=== PATIENT | female | born 1970 | race Caucasian/White ===

== ENCOUNTER → 2017-07-16 | Outpatient (CLI) | payer OTHER ==
--- NOTE | 2017-07-16 09:53 | US ---
EXAMINATION TYPE: US venous doppler duplex LE DATE OF EXAM: 07/16/2017 9:35 AM COMPARISON: NONE CLINICAL HISTORY: M79.662 M79.661 Pain in lower limbs. SIDE PERFORMED: Bilateral TECHNIQUE: The lower extremity deep venous system is examined utilizing real time linear array sonog jaylyn with graded compression, doppler sonography and color-flow sonography. VESSELS IMAGED: External Iliac Vein (EIV) Common Femoral Vein Deep Femoral Vein Greater Saphenous Vein * Femoral Vein Popliteal Vein Proximal Calf Veins (* superficial vessels) Right Leg: Negative for DVT Left Leg: Negative for DVT IMPRESSION: Grayscale, color doppler, spectral doppler imaging performed of the deep veins of the lo wer extremities. There is normal flow, compressibility, vascular waveforms. No evident deep venous arthrosis at or above the knees.
--- NOTE | 2017-07-16 10:13 | MM ---
Reason for exam: screening (asymptomatic). Baseline mammogram. Physical Findings: Nurse did not find any significant physical abnormalities on exam. MG 3D Screening Mammo W/Cad Bilateral CC and MLO view(s) were taken. XCCL view(s) were taken of the right breast. There are scattered fibroglandular densities. Benign calcifications bilaterally. There is no discrete abnormality. These results were verbally communicated with the patient and result sheet given to the patient on 07/16/17. ASSESSMENT: Benign, BI-RAD 2 RECOMMENDATION: Routine screening mammogram of both breasts in 1 year.
== END | disposition home or self-care (01) ==
LOC: RADMAMWWP 08:22
PROVIDERS: ATTEND Family Medicine
DX: Z12.31 Encounter for screening mammogram for malignant neoplasm of breast (principal); M79.661 Pain in right lower leg; M79.662 Pain in left lower leg; R22.43 Localized swelling, mass and lump, lower limb, bilateral
CPT/HCPCS: 77063; 77067; 93970

== ENCOUNTER → 2018-09-28 | Outpatient (CLI) | payer OTHER ==
--- NOTE | 2018-09-29 13:19 | MM ---
Reason for exam: screening (asymptomatic). Last mammogram was performed 1 year and 2 months ago. Physical Findings: A clinical breast exam by your physician is recommended on an annual basis and results should be correlated with mammographic findings. MG Screening Mammo w CAD Bilateral CC and MLO view(s) were taken. XCCL view(s) were taken of the left breast. Prior study comparison: July 16, 2017, bilateral MG 3d screening mammo w/cad. There are scattered fibroglandular densities. There are benign appearing round dystrophic calcifications bilaterally. There is no discrete abnormality. ASSESSMENT: Benign, BI-RAD 2 RECOMMENDATION: Routine screening mammogram of both breasts in 1 year.
== END | disposition home or self-care (01) ==
LOC: RADMAMWWP 10:42
PROVIDERS: ATTEND Family Medicine
DX: Z12.31 Encounter for screening mammogram for malignant neoplasm of breast (principal)
CPT/HCPCS: 77067

== ENCOUNTER → 2020-01-16 | Outpatient (CLI) | payer OTHER ==
--- NOTE | 2020-01-16 16:31 | NM ---
EXAMINATION TYPE: NM hepatobiliary wo EF DATE OF EXAM: 01/16/2020 COMPARISON: CT abdomen pelvis 11/28/2015 HISTORY: Status post cholecystectomy. Intermittent right upper quadrant pain. TECHNIQUE: After the intravenous administration of 5.2 mCi Tc 99m Mebrofenin hepatobiliary scintigrap hy is performed. Immediate images post injection. FINDINGS: No gallbladder activity is seen. Small bowel activity is seen within 15 minutes. There is normal hepa tic activity and clearance. No evidence of abnormal extravasation. IMPRESSION: No evidence of activity within the gallbladder fossa or abnormal extravasation. Examinati on is as expected status post cholecystectomy.
== END | disposition home or self-care (01) ==
LOC: RADNMMAIN 07:01
PROVIDERS: ATTEND Family Medicine
DX: R10.11 Right upper quadrant pain (principal); Z90.49 Acquired absence of other specified parts of digestive tract
CPT/HCPCS: 78226; A9537

== ENCOUNTER → 2020-02-26 | Outpatient (CLI) | payer OTHER ==
--- NOTE | 2020-02-28 09:52 | MM ---
Reason for exam: screening (asymptomatic). Last mammogram was performed 1 year and 5 months ago. History: Patient history of other cancer. Physical Findings: A clinical breast exam by your physician is recommended on an annual basis and results should be correlated with mammographic findings. MG Screening Mammo w CAD Bilateral CC and MLO view(s) were taken. Prior study comparison: September 28, 2018, bilateral MG screening mammo w CAD. July 16, 2017, bilateral MG 3d screening mammo w/cad. There are scattered fibroglandular densities. Benign oil cyst calcifications. No significant changes when compared with prior studies. ASSESSMENT: Negative, BI-RAD 1 RECOMMENDATION: Routine screening mammogram of both breasts in 1 year.
== END | disposition home or self-care (01) ==
LOC: RADMAMWWP 14:39
PROVIDERS: ATTEND Family Medicine
DX: Z12.31 Encounter for screening mammogram for malignant neoplasm of breast (principal)
CPT/HCPCS: 77067

== ENCOUNTER → 2020-09-23 | Outpatient (CLI) | payer OTHER ==
[2020-09-23 13:14] VITALS: BP 131/83; PULSE 92; RESP 18; TEMP 97.6; BMI 44.5
[2020-09-23 14:19] LABS: MCH 27.1 pg (25.0-35.0); MCHC 33.3 g/dL (31.0-37.0); MCV 81.4 fL (80.0-100.0); Platelet Count 341 k/uL (150-450); RBC 4.79 m/uL (3.80-5.40); RDW 15.2 % (11.5-15.5); WBC 9.7 k/uL (3.8-10.6)
--- NOTE | 2020-09-23 16:17 | P.HPBAR ---
Bariatric H&P - History & Physicial H&P Date: 09/23/20 History & Physicial: Visit/CC: initial visit Patient initial contact: Initial weight: Initial weight in pounds: Height: 5 ft 5.75 in Initial BMI: Last weight: Current weight: 124.284 kg Current weight in pounds: 274.00 Current BMI: 44.5 [place] body weight (based on NIH guidelines): 58.4 kg Excess body weight loss: The patient is a 49 year-old F who presents for Bariatric Assessment.patient presents today for bariatric consultation. She is morbidly obese. Her BMI is 44. She's had lifetime problems obesity. Patient has an excellent understanding of the sleeve gastrectomy. Went over the risks and benefits procedure including gastric perforation scarring or bleeding. Past Medical History Past Medical History: Chest Pain / Angina, GERD/Reflux Additional Past Medical History / Comment(s): diverticulosis, laparoscopic punctures still healing from 09-12-15,miscarriage History of Any Multi-Drug Resistant Organisms: None Reported Past Surgical History: Cholecystectomy Additional Past Surgical History / Comment(s): D & C x2, 10-25-15 BOWEL SX-LOW ANTERIOR RESECTION. Past Anesthesia/Blood Transfusion Reactions: Postoperative Nausea & Vomiting (PONV) Past Psychological History: No Psychological Hx Reported Smoking Status: Current every day smoker Past Alcohol Use History: None Reported Additional Past Alcohol Use History / Comment(s): started smoking 1990. PPD: 1/2 Past Drug Use History: None Reported - Past Family History Sister(s) Additional Family Medical History / Comment(s): bipolar Mother Additional Family Medical History / Comment(s): with blood clot to heart due to control Father Family Medical History: Cancer Additional Family Medical History / Comment(s): open heart surg x2 Surgical - Exam Vital Signs Temp Pulse Resp BP 97.6 F 92 18 131/83 09/23/20 13:06 09/23/20 13:06 09/23/20 13:06 09/23/20 13:06 - General well developed, well nourished, no distress - Eyes PERRL - ENT normal pinna - Neck no masses - Respiratory normal expansion - Cardiovascular Rhythm: regular - Abdomen Abdomen: soft, non tender Results - Labs 09/23/20 13:49 Bariatric Assessment & Plan Plan: morbid obesity. Patient is scheduled for EGD. She'll follow-upafter EGD is performed. Bariatric Checklist Checklist: Plan: Checklist: EGD: 1. Hiatal hernia: 2. H. Pylori: HgbA1c: Vitamin D: Smoking: Current every day smoker Primary care physician referral: Dr. Nieves (RACHEL Arreola) Psychiatry clearance: Cardiology clearance: Sleep study: Diet journal: VTE risk score: VTE risk level: Rehab needs at discharge:
[2020-09-23 20:08] LABS: Folate, Serum 3.6 ng/mL
[2020-09-23 20:14] LABS: African American GFR (CKD) 119.6 (60.0-200.0); Albumin/Globulin Ratio 1.74 (1.60-3.17); Anion Gap 6.9 mmol/L (4.00-12.00); BUN/Creat Ratio 18.57 Ratio (12.00-20.00); Calcium 9.3 mg/dL (8.7-10.3); Carbon Dioxide 28.1 mmol/L (21.6-31.8); Globulin 2.3 g/dL (1.6-3.3); Non-African American GFR(CKD) 103.2 (60.0-200.0); Potassium 4.4 mmol/L (3.5-5.5); Total Bilirubin 0.1 mg/dL (0.3-1.2); Total Protein 6.3 g/dL (6.2-8.2)
[2020-09-23 21:28] LABS: Hemoglobin A1C 6.4 % (4.0-6.0)
== END ==
LOC: BARWHC3 13:00
PROVIDERS: ATTEND Surgery
DX: E66.01 Morbid (severe) obesity due to excess calories (principal); K21.9 Gastro-esophageal reflux disease without esophagitis; F17.200 Nicotine dependence, unspecified, uncomplicated; Z68.41 Body mass index [BMI] 40.0-44.9, adult; Z79.899 Other long term (current) drug therapy
CPT/HCPCS: 84425; 80053; 82607; 82746; 85027; 82306; 83036; 93005; G0463; 99211

== ENCOUNTER 2020-11-07 08:00 | Day surgery (SDC) | payer OTHER ==
[2020-11-05 10:51] VITALS: BMI 42.7
[2020-11-07 09:02] VITALS: TEMP 97
[2020-11-07] MEDS ORDERED: LACTATED RINGERS 1,000 ML IV ONE (09:02)
[2020-11-07] MEDS ORDERED: LIDOCAINE 1% INJ 10MG/ML (20 ML MDV) ONE (09:31)
[2020-11-07] MEDS ORDERED: PROPOFOL 10 MG/ML 20 ML VIAL IV ONE (09:31)
--- NOTE | 2020-11-07 09:35 | P.GSHP ---
History of Present Illness H&P Date: 11/07/20 Chief Complaint: GERD, morbid obesity This a 42-year-old female presents today for EGD. She is undergoing workup for sleeve gastrectomy. She is morbidly obese. Her BMI is 44 Past Medical History Past Medical History: GERD/Reflux Additional Past Medical History / Comment(s): diverticulosis,miscarriage History of Any Multi-Drug Resistant Organisms: None Reported Past Surgical History: Bowel Resection, Cholecystectomy Additional Past Surgical History / Comment(s): D & C x2, 10-25-15 BOWEL SX-LOW ANTERIOR RESECTION. Past Anesthesia/Blood Transfusion Reactions: Postoperative Nausea & Vomiting (PONV) Past Psychological History: No Psychological Hx Reported Smoking Status: Current every day smoker Past Alcohol Use History: None Reported Additional Past Alcohol Use History / Comment(s): started smoking 1990. PPD: 06/29 Past Drug Use History: None Reported - Past Family History Sister(s) Additional Family Medical History / Comment(s): bipolar Mother Additional Family Medical History / Comment(s): with blood clot to heart due to control Father Family Medical History: Cancer Additional Family Medical History / Comment(s): open heart surg x2 Medications and Allergies Home Medications Medication Instructions Recorded Confirmed Type Acetaminophen Tab [Tylenol] 650 mg PO Q4H PRN 09/23/20 11/05/20 History Omeprazole [PriLOSEC] 20 mg PO AC-BRKFST 09/23/20 11/05/20 History Allergies Allergy/AdvReac Type Severity Reaction Status Date / Time No Known Allergies Allergy Verified 11/05/20 10:46 Surgical - Exam Vital Signs Temp Pulse Resp BP Pulse Ox 97 F L 90 20 156/100 94 L 11/07/20 09:00 11/07/20 09:00 11/07/20 09:00 11/07/20 09:00 11/07/20 09:00 - General well developed, well nourished, no distress - Eyes PERRL - ENT normal pinna - Neck no masses - Respiratory normal expansion - Cardiovascular Rhythm: regular - Abdomen Abdomen: soft, non tender Assessment and Plan Assessment: GERD, obesity. We'll perform EGD.
--- NOTE | 2020-11-07 09:44 | P.OP ---
Date of Procedure: 11/07/20 Preoperative Diagnosis: GERD Postoperative Diagnosis: Antral gastritis Esophagitis Procedure(s) Performed: EGD Anesthesia: MAC Surgeon: Geremias Montenegro Pathology: other (Antrum, esophagus) Condition: stable Disposition: PACU Description of Procedure: The patient's placed on the endoscopy table in the lateral position. She received IV sedation. The gastro-/oropharynx passed in the esophagus and the stomach. Scope was placed through the pylorus. The first and second portion of the duodenum appeared normal. Scope was brought back the antrum this was mildly inflamed. A biopsies performed. Scope was then retroflexed and the remainder of the stomach appeared normal. The GE junction was at 40 cm. The distal esophagus was inflamed. A biopsies performed. The proximal esophagus appeared normal. The scope was withdrawn for patient.
[2020-11-07 10:01] VITALS: BP 139/91; PULSE 94; RESP 18
== END 2020-11-07 10:16 | disposition home or self-care (01) ==
LOC: ORWHC2ENDO 08:00
PROVIDERS: ATTEND Surgery
DX: K29.50 Unspecified chronic gastritis without bleeding (principal); K21.00 Gastro-esophageal reflux disease with esophagitis, without bleeding; E66.01 Morbid (severe) obesity due to excess calories; F31.9 Bipolar disorder, unspecified; F17.210 Nicotine dependence, cigarettes, uncomplicated; Z68.41 Body mass index [BMI] 40.0-44.9, adult; Z79.899 Other long term (current) drug therapy; Z80.9 Family history of malignant neoplasm, unspecified; Z82.49 Family history of ischemic heart disease and other diseases of the circulatory system
CPT/HCPCS: 81025; 88305; 88342; 43239; J2001; J2704

== ENCOUNTER → 2020-11-18 | Outpatient (CLI) | payer OTHER ==
[2020-11-18 14:29] VITALS: BP 135/91; PULSE 98; RESP 16; TEMP 98.5; BMI 46.8
--- NOTE | 2020-11-18 15:42 | P.HPBAR ---
Bariatric H&P - History & Physicial H&P Date: 11/18/20 History & Physicial: Visit/CC: EGD F/U Patient initial contact: Initial weight: 124.284 kg Initial weight in pounds: 274.00 Height: 5 ft 5.75 in Initial BMI: 44.5 Last weight: Current weight: 130.635 kg Current weight in pounds: 288.00 Current BMI: 46.8 [place] body weight (based on NIH guidelines): 58.4 kg Excess body weight loss: The patient is a 50 year-old F who presents for Bariatric Assessment. Patient presents today for presurgical consultation. She. Has a couple more months left of her physician directed weight loss. She has an excellent understanding of the sleeve gastrectomy. Her BMI is 46 Past Medical History Past Medical History: GERD/Reflux Additional Past Medical History / Comment(s): diverticulosis,miscarriage History of Any Multi-Drug Resistant Organisms: None Reported Past Surgical History: Bowel Resection, Cholecystectomy Additional Past Surgical History / Comment(s): D & C x2, 10-25-15 BOWEL SX-LOW ANTERIOR RESECTION. Past Anesthesia/Blood Transfusion Reactions: Postoperative Nausea & Vomiting (PONV) Past Psychological History: No Psychological Hx Reported Smoking Status: Current every day smoker Past Alcohol Use History: None Reported Additional Past Alcohol Use History / Comment(s): started smoking 1990. PPD: 06/29 Past Drug Use History: None Reported - Past Family History Sister(s) Additional Family Medical History / Comment(s): bipolar Mother Additional Family Medical History / Comment(s): with blood clot to heart due to control Father Family Medical History: Cancer Additional Family Medical History / Comment(s): open heart surg x2 Surgical - Exam Vital Signs Temp Pulse Resp BP 98.5 F 98 16 135/91 11/18/20 14:25 11/18/20 14:25 11/18/20 14:25 11/18/20 14:25 - General well developed, well nourished, no distress - Eyes PERRL - ENT normal pinna - Neck no masses - Respiratory normal expansion - Cardiovascular Rhythm: regular - Abdomen Abdomen: soft, non tender Hernia: incisional Bariatric Assessment & Plan Plan: Morbid obesity. Patient will be scheduled for sleeve gastrectomy once her insurance authorization requirements. Bariatric Checklist Checklist: Plan: Checklist: EGD: 1. Hiatal hernia: 2. H. Pylori: HgbA1c: Vitamin D: Smoking: Current every day smoker Primary care physician referral: Dr. Nieves (RACHEL Arreola) Psychiatry clearance: Cardiology clearance: Sleep study: Diet journal: VTE risk score: VTE risk level: Rehab needs at discharge:
== END ==
LOC: BARWHC3 14:11
PROVIDERS: ATTEND Surgery
DX: E66.01 Morbid (severe) obesity due to excess calories (principal); K21.9 Gastro-esophageal reflux disease without esophagitis; Z68.41 Body mass index [BMI] 40.0-44.9, adult; F17.210 Nicotine dependence, cigarettes, uncomplicated
CPT/HCPCS: 99211

== ENCOUNTER 2021-07-22 09:34 | Emergency (ER) | payer OTHER ==
[2021-07-22 10:56] LABS: Appearance,Urine Cloudy (Clear); Bilirubin,Urine Negative (Negative); Blood,Urine Trace (Negative); Color,Urine Yellow; Glucose,Urine (UA) Negative (Negative); Ketones,Urine Negative (Negative); Leukocyte Esterase,Urine Negative (Negative); Mucus,Urine Few /hpf; Nitrite,Urine Negative (Negative); PH, Urine 5.5 (5.0-8.0); Protein,Urine Trace (Negative); RBC,Urine 1 /hpf (0-5); Specific Gravity,Urine 1.028 (1.001-1.035); Squamous Epithelial Cell,Urine 5 /hpf (0-4); Urobilinogen,Urine <2.0 mg/dL (<2.0); WBC,Urine 1 /hpf (0-5)
--- NOTE | 2021-07-22 11:34 | ED ---
General Adult HPI - General Chief complaint: Abdominal Pain Stated complaint: rectal pain, lt arm numbness Time Seen by Provider: 07/22/21 11:20 Source: patient Mode of arrival: ambulatory Limitations: no limitations - History of Present Illness Initial comments: This 50-year-old female with past medical history of an umbilical hernia and hemorrhoids presents emergency Department with external hemorrhoid pain 1 day. Patient states she has had this external hemorrhoid for at least 3-4 days now, however, over the last couple days she has noticed it becoming more painful. Patient states she had rectal bleeding from a hemorrhoid yesterday, with bright red blood in her toilet bowl and on her toilet paper. Patient states she has had many hemorrhoids in her past that usually go away on their own. Patient states her umbilical hernia has also been bothering her for the last 2 days, causing her some abdominal pain. Patient states she has increased pain that is colicky in nature around her umbilical hernia. Patient denies any chest pain, shortness of breath, weakness, dizziness, abdominal pain, change in bowel or bladder, constipation, nausea, vomiting, headache, change in vision. - Related Data Home Medications Medication Instructions Recorded Confirmed Omeprazole [PriLOSEC] 20 mg PO AC-BRKFST 09/23/20 07/22/21 Previous Rx's Medication Instructions Recorded Hydrocortisone [Anusol-Hc] 1 applic RECTAL TID #30 gm 07/22/21 Allergies Allergy/AdvReac Type Severity Reaction Status Date / Time No Known Allergies Allergy Verified 07/22/21 12:31 Review of Systems ROS Statement: Those systems with pertinent positive or pertinent negative responses have been documented in the HPI. ROS Other: All systems not noted in ROS Statement are negative. Past Medical History Past Medical History: GERD/Reflux Additional Past Medical History / Comment(s): diverticulosis,miscarriage History of Any Multi-Drug Resistant Organisms: None Reported Past Surgical History: Bowel Resection, Cholecystectomy Additional Past Surgical History / Comment(s): D & C x2, 10-25-15 BOWEL SX-LOW ANTERIOR RESECTION. Past Anesthesia/Blood Transfusion Reactions: Postoperative Nausea & Vomiting (PONV) Past Psychological History: No Psychological Hx Reported Smoking Status: Current every day smoker Past Alcohol Use History: None Reported Past Drug Use History: Marijuana - Past Family History Sister(s) Additional Family Medical History / Comment(s): bipolar Mother Additional Family Medical History / Comment(s): with blood clot to heart due to control Father Family Medical History: Cancer Additional Family Medical History / Comment(s): open heart surg x2 General Exam Limitations: no limitations General appearance: alert, in no apparent distress Head exam: Present: atraumatic, normocephalic, normal inspection Eye exam: Present: normal appearance, EOMI ENT exam: Present: normal exam, mucous membranes moist Neck exam: Present: normal inspection. Absent: tenderness, meningismus, lymphadenopathy Respiratory exam: Present: normal lung sounds bilaterally. Absent: respiratory distress, wheezes, rales, rhonchi, stridor Cardiovascular Exam: Present: regular rate, normal rhythm, normal heart sounds. Absent: systolic murmur, diastolic murmur, rubs, gallop, clicks GI/Abdominal exam: Present: soft, tenderness (Tender over umbilical hernia with the palpation), normal bowel sounds. Absent: distended, guarding, rebound, rigid Rectal exam: Present: hemorrhoids (External hemorrhoid present in the size of a nickel without any bleeding or bruising present. Hemorrhoid bulging and erythematous with slight firmness. Painful to palpation. ). Absent: heme (-) stool Extremities exam: Present: normal inspection, full ROM, normal capillary refill. Absent: tenderness, pedal edema, joint swelling, calf tenderness Back exam: Present: normal inspection. Absent: tenderness, CVA tenderness (R), CVA tenderness (L), paraspinal tenderness, vertebral tenderness Neurological exam: Present: alert, oriented X3, CN II-XII intact Psychiatric exam: Present: normal affect, normal mood Skin exam: Present: warm, dry, intact, normal color. Absent: rash Course Vital Signs 07/22/21 07/22/21 07/22/21 09:50 13:05 15:32 Temperature 97.6 F 97.8 F Pulse Rate 97 91 83 Respiratory 20 18 18 Rate Blood Pressure 119/81 116/79 119/66 O2 Sat by Pulse 97 98 96 Oximetry Medical Decision Making - Medical Decision Making This 50-year-old female presents to the emergency department with external hemorrhoid pain and umbilical hernia pain [address] abdomen and pelvis impression: Normal. Appendix. Hepatomegaly correlate for hepatic steatosis. There are to anterior abdominal wall. The hernias containing fat. Stable thickening of left adrenal gland. Correlate for hyperplasia or adenoma. Labs unremarkable. Rectal exam showed external hemorrhoid that was erythematous and painful to palpation. Urine without nitrites or white blood cells. Urine hCG is negative. She was prescribed Anusol cream and advised to take warm sitz bath and eat lots of fiber. Patient to follow up with surgeon in next 24-48 hours for evaluation of external hemorrhoid and umbilical hernia. Patient given strict return precautions. Patient to follow up with primary care provider next 24-48 hours. Patient verbally agreed to plan. Patient was sent home in stable condition. Discussed case with my attending, . - Lab Data Result diagrams: 07/22/21 12:25 07/22/21 12:25 Lab Results 07/22/21 07/22/21 07/22/21 Range/Units 10:00 10:00 12:25 WBC 8.1 (3.8-10.6) k/uL RBC 4.72 (3.80-5.40) m/uL Hgb 12.9 (11.4-16.0) gm/dL Hct 39.1 (34.0-46.0) % MCV 82.9 (80.0-100.0) fL MCH 27.2 (25.0-35.0) pg MCHC 32.9 (31.0-37.0) g/dL RDW 15.1 (11.5-15.5) % Plt Count 300 (150-450) k/uL MPV 7.5 Neutrophils % 62 % Lymphocytes % 27 % Monocytes % 5 % Eosinophils % 4 % Basophils % 0 % Neutrophils # 5.0 (1.3-7.7) k/uL Lymphocytes # 2.2 (1.0-4.8) k/uL Monocytes # 0.4 (0-1.0) k/uL Eosinophils # 0.4 (0-0.7) k/uL Basophils # 0.0 (0-0.2) k/uL PT (9.0-12.0) sec INR (<1.2) APTT (22.0-30.0) sec Sodium (137-145) mmol/L Potassium (3.5-5.1) mmol/L Chloride (98-107) mmol/L Carbon Dioxide (22-30) mmol/L Anion Gap mmol/L BUN (7-17) mg/dL Creatinine (0.52-1.04) mg/dL Est GFR (CKD-EPI)AfAm (>60 ml/min/1.73 sqM) Est GFR (CKD-EPI)NonAf (>60 ml/min/1.73 sqM) Glucose (74-99) mg/dL Plasma Lactic Acid Cornelio (0.7-2.0) mmol/L Calcium (8.4-10.2) mg/dL Total Bilirubin (0.2-1.3) mg/dL AST (14-36) U/L ALT (4-34) U/L Alkaline Phosphatase (38-126) U/L Total Protein (6.3-8.2) g/dL Albumin (3.5-5.0) g/dL Lipase (23-300) U/L Urine Color Yellow Urine Appearance Cloudy H (Clear) Urine pH 5.5 (5.0-8.0) Ur Specific [place] 1.028 (1.001-1.035) Urine Protein Trace H (Negative) Urine Glucose (UA) Negative (Negative) Urine Ketones Negative (Negative) Urine Blood Trace H (Negative) Urine Nitrite Negative (Negative) Urine Bilirubin Negative (Negative) Urine Urobilinogen <2.0 (<2.0) mg/dL Ur Leukocyte Esterase Negative (Negative) Urine RBC 1 (0-5) /hpf Urine WBC 1 (0-5) /hpf Ur Squamous Epith Cells 5 H (0-4) /hpf Urine Mucus Few H (None) /hpf Urine HCG, Qual Not Detected (Not Detectd) Stool Occult Blood (Negative) 07/22/21 07/22/21 07/22/21 Range/Units 12:25 12:25 12:25 WBC (3.8-10.6) k/uL RBC (3.80-5.40) m/uL Hgb (11.4-16.0) gm/dL Hct (34.0-46.0) % MCV (80.0-100.0) fL MCH (25.0-35.0) pg MCHC (31.0-37.0) g/dL RDW (11.5-15.5) % Plt Count (150-450) k/uL MPV Neutrophils % % Lymphocytes % % Monocytes % % Eosinophils % % Basophils % % Neutrophils # (1.3-7.7) k/uL Lymphocytes # (1.0-4.8) k/uL Monocytes # (0-1.0) k/uL Eosinophils # (0-0.7) k/uL Basophils # (0-0.2) k/uL PT 10.2 (9.0-12.0) sec INR 0.9 (<1.2) APTT 22.1 (22.0-30.0) sec Sodium 136 L (137-145) mmol/L Potassium 4.2 (3.5-5.1) mmol/L Chloride 106 (98-107) mmol/L Carbon Dioxide 25 (22-30) mmol/L Anion Gap 5 mmol/L BUN 12 (7-17) mg/dL Creatinine 0.68 (0.52-1.04) mg/dL Est GFR (CKD-EPI)AfAm >90 (>60 ml/min/1.73 sqM) Est GFR (CKD-EPI)NonAf >90 (>60 ml/min/1.73 sqM) Glucose 154 H (74-99) mg/dL Plasma Lactic Acid Cornelio 1.3 (0.7-2.0) mmol/L Calcium 9.0 (8.4-10.2) mg/dL Total Bilirubin 0.4 (0.2-1.3) mg/dL AST 26 (14-36) U/L ALT 29 (4-34) U/L Alkaline Phosphatase 73 (38-126) U/L Total Protein 6.9 (6.3-8.2) g/dL Albumin 3.7 (3.5-5.0) g/dL Lipase 27 (23-300) U/L Urine Color Urine Appearance (Clear) Urine pH (5.0-8.0) Ur Specific [place] (1.001-1.035) Urine Protein (Negative) Urine Glucose (UA) (Negative) Urine Ketones (Negative) Urine Blood (Negative) Urine Nitrite (Negative) Urine Bilirubin (Negative) Urine Urobilinogen (<2.0) mg/dL Ur Leukocyte Esterase (Negative) Urine RBC (0-5) /hpf Urine WBC (0-5) /hpf Ur Squamous Epith Cells (0-4) /hpf Urine Mucus (None) /hpf Urine HCG, Qual (Not Detectd) Stool Occult Blood (Negative) 07/22/21 Range/Units 14:27 WBC (3.8-10.6) k/uL RBC (3.80-5.40) m/uL Hgb (11.4-16.0) gm/dL Hct (34.0-46.0) % MCV (80.0-100.0) fL MCH (25.0-35.0) pg MCHC (31.0-37.0) g/dL RDW (11.5-15.5) % Plt Count (150-450) k/uL MPV Neutrophils % % Lymphocytes % % Monocytes % % Eosinophils % % Basophils % % Neutrophils # (1.3-7.7) k/uL Lymphocytes # (1.0-4.8) k/uL Monocytes # (0-1.0) k/uL Eosinophils # (0-0.7) k/uL Basophils # (0-0.2) k/uL PT (9.0-12.0) sec INR (<1.2) APTT (22.0-30.0) sec Sodium (137-145) mmol/L Potassium (3.5-5.1) mmol/L Chloride (98-107) mmol/L Carbon Dioxide (22-30) mmol/L Anion Gap mmol/L BUN (7-17) mg/dL Creatinine (0.52-1.04) mg/dL Est GFR (CKD-EPI)AfAm (>60 ml/min/1.73 sqM) Est GFR (CKD-EPI)NonAf (>60 ml/min/1.73 sqM) Glucose (74-99) mg/dL Plasma Lactic Acid [place] (0.7-2.0) mmol/L Calcium (8.4-10.2) mg/dL Total Bilirubin (0.2-1.3) mg/dL AST (14-36) U/L ALT (4-34) U/L Alkaline Phosphatase (38-126) U/L Total Protein (6.3-8.2) g/dL Albumin (3.5-5.0) g/dL Lipase (23-300) U/L Urine Color Urine Appearance (Clear) Urine pH (5.0-8.0) Ur Specific [place] (1.001-1.035) Urine Protein (Negative) Urine Glucose (UA) (Negative) Urine Ketones (Negative) Urine Blood (Negative) Urine Nitrite (Negative) Urine Bilirubin (Negative) Urine Urobilinogen (<2.0) mg/dL Ur Leukocyte Esterase (Negative) Urine RBC (0-5) /hpf Urine WBC (0-5) /hpf Ur Squamous Epith Cells (0-4) /hpf Urine Mucus (None) /hpf Urine HCG, Qual (Not Detectd) Stool Occult Blood Negative (Negative) Disposition Clinical Impression: External hemorrhoid Disposition: HOME SELF-CARE Condition: Stable Instructions (If sedation given, give patient instructions): Hemorrhoids (ED), Umbilical Hernia (ED), Thrombosed Hemorrhoid (ED) Additional Instructions: Please return to the emergency department with any concerning, new, worsening s ymptoms. Please follow-up with primary care provider next 24-48 hours. Please follow-up with surgeon in next 24-48 hours. Continue to eat lots of fiber. Take warm sitz baths. Use medication as directed for external hemorrhoid. Prescriptions: Hydrocortisone [Anusol-Hc] 1 applic RECTAL TID #30 gm Is patient prescribed a controlled substance at d/c from ED?: No Referrals: Joaquín Nieves Jr, DO [Primary Care Provider] - 1-2 days Geremias Montenegro MD [STAFF PHYSICIAN] - 1-2 days Time of Disposition: 15:16
[2021-07-22] MEDS ORDERED: MORPHINE SULFATE 4 MG/ML SYRINGE IV STA (11:53)
[2021-07-22] MEDS ORDERED: SODIUM CHLORIDE 0.9% 500 ML 500 ML IV STA (11:53)
[2021-07-22 12:36] LABS: Basophils % (A) 0 %; Eosinophils # (A) 0.4 k/uL (0-0.7); Eosinophils % (A) 4 %; HCT 39.1 % (34.0-46.0); HGB 12.9 gm/dL (11.4-16.0); Lymphocytes # (A) 2.2 k/uL (1.0-4.8); Lymphocytes % (A) 27 %; MCH 27.2 pg (25.0-35.0); MCHC 32.9 g/dL (31.0-37.0); MCV 82.9 fL (80.0-100.0); Mean Platelet Volume 7.5; Monocytes # (A) 0.4 k/uL (0-1.0); Monocytes % (A) 5 %; Neutrophils % (A) 62 %; Platelet Count 300 k/uL (150-450); RBC 4.72 m/uL (3.80-5.40); RDW 15.1 % (11.5-15.5); WBC 8.1 k/uL (3.8-10.6)
[2021-07-22 12:47] LABS: ALT 29 U/L (4-34); AST 26 U/L (14-36); African American GFR (CKD) >90 (>60 ml/min/1.73 sqM); Albumin 3.7 g/dL (3.5-5.0); Alkaline Phosphatase 73 U/L (38-126); Anion Gap 5 mmol/L; Blood Urea Nitrogen 12 mg/dL (7-17); Carbon Dioxide 25 mmol/L (22-30); Chloride 106 mmol/L (98-107); Glucose 154 mg/dL (74-99); Lipase 27 U/L (23-300); Non-African American GFR(CKD) >90 (>60 ml/min/1.73 sqM); Potassium 4.2 mmol/L (3.5-5.1); Sodium 136 mmol/L (137-145); Total Bilirubin 0.4 mg/dL (0.2-1.3); Total Protein 6.9 g/dL (6.3-8.2)
[2021-07-22 12:56] LABS: INR 0.9 (<1.2); Partial Thromboplastin Time 22.1 sec (22.0-30.0); Prothrombin Time 10.2 sec (9.0-12.0)
--- NOTE | 2021-07-22 13:49 | CT ---
EXAMINATION TYPE: CT abdomen pelvis w con DATE OF EXAM: 07/22/2021 COMPARISON: 11/28/2015 HISTORY: periumbilical and RLQ pain CT DLP: 2735.4 mGycm Automated exposure control for dose reduction was used. CONTRAST: CT scan of the abdomen pelvis is performed with IV Contrast, patient injected with 100 mL of Isovue 3 00. FINDINGS- LUNG BASES- No significant abnormality is appreciated. LIVER/GB-diffuse low-attenuation liver correlate for hepatic steatosis. Areas of focal fatty sparing. Gallbladder not visualized.. PANCREAS-atrophy of the pancreas. SPLEEN- No gross abnormality is seen. ADRENALS-there is left adrenal thickening.. KIDNEYS/BLADDER- no hydronephrosis or nephrolithiasis. Parapelvic left renal cysts noted. BOWEL-bowel gas pattern nonspecific with no obstruction. Suggestion of previous surgery in the bowel. Normal appendix. LYMPH NODES- No greater than 1cm abdominal or pelvic lymph nodes areappreciated. OSSEOUS STRUCTURES-degenerative changes spine with multilevel facet arthropathy. Bilateral spondyloly sis L5. There is severe facet arthropathy L3-4 and L4-5 minimal anterolisthesis L4 on L5. Minimal ant erolisthesis L5 on S1. OTHER- there are multiple fat-containing periumbilical and anterior abdominal wall hernia. IMPRESSION- 1. Normal-appearing appendix. 2. Hepatomegaly correlate for hepatic steatosis. 3. There are 2 anterior abdominal wall periumbilical hernias containing fat. 4. Stable thickening of the left adrenal gland. Correlate for hyperplasia or adenoma.
[2021-07-22 15:16] VITALS: RESP 18
[2021-07-22 15:35] VITALS: BP 119/66; PULSE 83; TEMP 97.8
== END 2021-07-22 15:39 | disposition home or self-care (01) ==
LOC: EC 09:34
DX: K64.4 Residual hemorrhoidal skin tags (principal); K21.9 Gastro-esophageal reflux disease without esophagitis; F17.200 Nicotine dependence, unspecified, uncomplicated; Z79.83 Long term (current) use of bisphosphonates
CPT/HCPCS: 36415; 80053; 83605; 83690; 85025; 85610; 85730; 82272; 81001; 81025; 74177; 99284; 96374; J2270; Q9967

== ENCOUNTER → 2021-09-19 | Outpatient (CLI) | payer OTHER ==
[2021-09-19 17:57] LABS: Basophils # (A) 0.07 X 10*3/uL (0.00-0.10); Basophils % (A) 0.7 %; Eosinophils % (A) 5.1 %; HCT 41.9 % (37.2-46.3); HGB 12.8 g/dL (12.0-15.0); Immature Grans, Automated 0.4 %; Lymphocytes % (A) 28.3 %; MCH 25.3 pg (27.0-32.0); MCHC 30.5 g/dL (32.0-37.0); Mean Platelet Volume 10.3 fL (9.5-12.2); Monocytes % (A) 6.1 %; NRBC Per 100 WBC 0 /100 WBCS (0.0-0.0); Neutrophils # (A) 5.88 X 10*3/uL (1.80-7.70); Neutrophils % (A) 59.4 %; Platelet Count 331 X 10*3/uL (140-440); RBC 5.05 X 10*6/uL (4.10-5.20); RDW 15.8 % (11.5-14.5); WBC 9.89 X 10*3/uL (4.50-10.00)
== END | disposition home or self-care (01) ==
LOC: LABPAT 13:24
PROVIDERS: ATTEND Surgery
DX: Z01.812 Encounter for preprocedural laboratory examination (principal); K43.2 Incisional hernia without obstruction or gangrene
CPT/HCPCS: 36415; 85025

== ENCOUNTER 2021-09-30 07:50 | Observation (INO) | payer OTHER ==
[2021-09-25 15:44] VITALS: BMI 41.9
[~2021-09-30 07:50] MED LIST: ACETAMINOPHEN TAB 500 MG TAB PO PRN; DEXAMETHASONE SOD PHOSPHATE 4 MG/ML 1 ML VIAL IV ONE; HEPARIN SODIUM,PORCINE/PF 5,000 UNIT/0.5 ML SYRINGE SQ PRN; MIDAZOLAM 2 MG/2 ML VIAL IV PRN; ONDANSETRON 4 MG/2 ML VIAL IVP ONE; SCOPOLAMINE 1 MG/72 HR PATCH TRANSDERM ONE
[2021-09-30] MEDS: LACTATED RINGERS 1,000 ML IV SCH (08:29)
[2021-09-30 08:32] LABS: Glucose,Whole Blood 145 mg/dL (75-99)
[2021-09-30] MEDS ORDERED: fentaNYL (PF) 50 MCG/ML 2 ML AMP IVP ONE (08:57)
--- NOTE | 2021-09-30 09:17 | P.GSHP ---
History of Present Illness H&P Date: 09/30/21 Chief Complaint: Incisional hernia This a 42-year-old female has developed an incisional hernia. Patient is morbidly obese. Her BMI is 43. She is appears history of colon surgery. She has developed a incisional hernia superior portion of her midline scar. Past Medical History Past Medical History: GERD/Reflux Additional Past Medical History / Comment(s): Diverticulosis. Incisional hernia History of Any Multi-Drug Resistant Organisms: None Reported Past Surgical History: Bowel Resection, Cholecystectomy Additional Past Surgical History / Comment(s): D&C x2, 10-25-15 Bowel SX-Low Anterior Resection Past Anesthesia/Blood Transfusion Reactions: Postoperative Nausea & Vomiting (PONV) Past Psychological History: No Psychological Hx Reported Smoking Status: Current every day smoker Past Alcohol Use History: None Reported Additional Past Alcohol Use History / Comment(s): Started smoking 1990, PPD: 06/29 Past Drug Use History: Marijuana Additional Drug Use History / Comment(s): daily use - Past Family History Sister(s) Additional Family Medical History / Comment(s): bipolar Mother Additional Family Medical History / Comment(s): with blood clot to heart due to control Father Family Medical History: Cancer, Coronary Artery Disease (CAD) Additional Family Medical History / Comment(s): Skin cancer; open heart surg x2 Medications and Allergies Home Medications Medication Instructions Recorded Confirmed Type Omeprazole [PriLOSEC] 20 mg PO AC-BRKFST 09/23/20 09/25/21 History Allergies Allergy/AdvReac Type Severity Reaction Status Date / Time No Known Allergies Allergy Verified 09/25/21 15:23 Surgical - Exam Vital Signs Temp Pulse Resp BP Pulse Ox 98 F 94 20 142/67 96 09/30/21 08:21 09/30/21 08:21 09/30/21 08:21 09/30/21 08:21 09/30/21 08:21 - General well developed, well nourished, no distress - Eyes PERRL - ENT normal pinna - Neck no masses - Respiratory normal expansion - Cardiovascular Rhythm: regular - Abdomen Abdomen: soft, non tender Hernia: incisional (10 cm incisional hernia located at the superior aspect of midline scar) Results - Labs Abnormal Lab Results - Last 24 Hours (Table) 09/30/21 Range/Units 08:26 POC Glucose (mg/dL) 145 H (75-99) mg/dL Assessment and Plan Assessment: Incisional hernia. We'll perform laparoscopic robotic-assisted repair.
[2021-09-30] MEDS ORDERED: LIDOCAINE 1% INJ 10MG/ML (20 ML MDV) ONE (09:28)
[2021-09-30] MEDS ORDERED: ROCURONIUM 10 MG/ML (5 ML VIAL) IV ONE (09:28)
[2021-09-30] MEDS ORDERED: SODIUM CHLORIDE 0.9% (PF) 10 ML VIAL ONE (09:28)
[2021-09-30] MEDS ORDERED: KETAMINE 10 MG/ML 20 ML VIAL ONE (09:28)
[2021-09-30] MEDS ORDERED: SUCCINYLCHOLINE CHLORIDE VIAL 200 MG/10 ML VIAL IV ONE (09:28)
[2021-09-30] MEDS ORDERED: fentaNYL (PF) 50 MCG/ML 2 ML AMP ONE (09:28)
[2021-09-30] MEDS ORDERED: HYDROmorphone (PF) 1 MG/ML ONE (09:28)
[2021-09-30] MEDS ORDERED: ROPIVACAINE 5 MG/ML 30 ML VIAL ONE (09:28)
[2021-09-30] MEDS ORDERED: PROPOFOL 10 MG/ML 20 ML VIAL IV ONE (09:28)
[2021-09-30] MEDS ORDERED: NEOSTIGMINE 1 MG/ML 10 ML VIAL ONE (09:28)
[2021-09-30] MEDS ORDERED: GLYCOPYRROLATE 0.2 MG/ML 2 ML VIAL ONE (09:28)
[2021-09-30] MEDS ORDERED: BUPIVACAIN-EPI 0.25%-1:200,000 30 ML VIAL SQ ONE ×2 (09:29→10:06)
--- NOTE | 2021-09-30 09:46 | P.ANPRN ---
Procedure Note - Anesthesia - Nerve Block Performed Bilateral Erector Spinae Single Time Out Performed: Yes ([id number]) Date of Procedure: 09/30/21 Procedure Start Time: 08:57 Procedure Stop Time: 09:03 Location of Patient: PreOp Indication: Acute Post-Operative Pain, Requested by Surgeon Specifically requested for management of pain by : Geremias Montenegro Sedation Type: Sedate with meaningful contact maintained Preparation: Sterile Prep Position: Supine Catheter: Indwelling Needle Types: Gilma (4in x2) Needle Gauge: 21 Ultrasound used to visualize needle placement: Yes Ultrasound used to observe medication spread: Yes Injectate: 0.5% Ropivacaine (see comment for volume) (20cc + 10cc nacl pf each side) Blood Aspirated: No Pain Paresthesia on Injection Noted: No Resistance on Injection: Normal Image Stored and Saved: Yes Events: Uneventful and Well Tolerated
[2021-09-30] MEDS ORDERED: LACTATED RINGERS 1,000 ML IV ONE ×2 (10:00→10:41)
[2021-09-30] MEDS ORDERED: NALOXONE 0.4 MG/ML 1 ML VIAL IV PRN (10:41)
[2021-09-30] MEDS ORDERED: HYDROmorphone 0.5 MG/0.5 ML SYRINGE IVP PRN (10:41)
[2021-09-30] MEDS ORDERED: ACETAMINOPHEN TAB 325 MG TAB PO PRN (10:41)
--- NOTE | 2021-09-30 10:41 | P.OP ---
Date of Procedure: 09/30/21 Preoperative Diagnosis: Incisional hernia Postoperative Diagnosis: Incarcerated incisional hernia Adhesions Procedure(s) Performed: Diagnostic laparoscopy Open repair of incisional hernia with Prolene mesh Partial omentectomy Anesthesia: ZEN Surgeon: Geremias Montenegro Estimated Blood Loss (ml): 10 Pathology: other (Incarcerated omentum/hernia sac) Condition: stable Disposition: PACU Description of Procedure: The patient's placed on the operative table in the supine position. Her abdomen was prepped and draped usual sterile fashion. Patient's morbid obesity. Her BMI is 43. The patient had a previous low midline scar. At this appeared portion of her scar there was an incisional hernia. Using a 5 mm optical trocar in the left upper quadrant. Cavity is entered. After adequate insufflation the laparoscope was placed back into the. Cavity. There were significant adhesions noted throughout the. Cavity. At this point decided to perform a open hernia repair. The trochars withdrawn. The skin was incised in midline over the hernia. The nasal which cautery the subcutaneous tissue divided. The hernia sac was from subcutaneous tissues. The fascia oblique was then . The hernia sac was opened. There is incarcerated omentum within the hernia sac. This was transected using left cautery to pathology. The fascial defect was then closed using #1 Stratafix suture. A piece of Prolene mesh was cut to size and placed over top the repair and secured with secure strap tacker. A CHUCK drains placed over top the repair brought through separate stab incision. Avelina's fascia close closed with 0 Vicryl. Skin was closed jakub. Sterile dressing was applied. Patient top she will was sent to recovery room stable condition.
[2021-09-30] MEDS: HYDROmorphone 0.5 MG/0.5 ML SYRINGE IVP PRN ×3 (11:20→11:48)
[2021-09-30] MEDS: KETOROLAC 15 MG/ML 1 ML VIAL IVP SCH ×2 (11:50→18:05)
[2021-09-30] MEDS: HYDROmorphone 1 MG/ML 1 ML SYRINGE IVP PRN ×2 (14:34→20:41)
[2021-09-30] MEDS: ONDANSETRON 4 MG/2 ML VIAL IVP PRN (18:17)
[2021-09-30] MEDS ORDERED: METOCLOPRAMIDE 5 MG/ML 2 ML VIAL IVP PRN (19:02)
[2021-09-30] MEDS: DOCUSATE 100 MG CAP PO SCH (20:00)
[2021-10-01] MEDS: HYDROmorphone 1 MG/ML 1 ML SYRINGE IVP PRN ×3 (01:49→22:28)
[2021-10-01] MEDS: KETOROLAC 15 MG/ML 1 ML VIAL IVP SCH ×4 (01:49→17:13)
[2021-10-01] MEDS: ENOXAPARIN 40 MG/0.4 ML SYRINGE SQ SCH (08:12)
[2021-10-01] MEDS: DOCUSATE 100 MG CAP PO SCH ×2 (08:12→22:28)
[2021-10-01] MEDS: LACTATED RINGERS 1,000 ML IV SCH (09:06)
[2021-10-01] MEDS: traMADol 50 MG TAB PO PRN (09:19)
--- NOTE | 2021-10-01 13:11 | P.HPIM ---
History of Present Illness H&P Date: 10/01/21 Chief Complaint: Hernia repair This is a 50-year-old female admitted with incarcerated incisional hernia, status post open repair with partial omentectomy . Tolerated procedure well. Reports nausea and vomiting last night, has a history of postop nausea & vomiting. This morning complains of mild nausea, no emesis, diet recently ordered. Pain controlled, passing flatus. Denies chest pain, palpitations or shortness of breath. Denies lightheadedness, dizziness or focal deficits. Past Medical History Past Medical History: GERD/Reflux Additional Past Medical History / Comment(s): Diverticulosis. Incisional hernia History of Any Multi-Drug Resistant Organisms: None Reported Past Surgical History: Bowel Resection, Cholecystectomy Additional Past Surgical History / Comment(s): D&C x2, 10-25-15 Bowel SX-Low Anterior Resection Past Anesthesia/Blood Transfusion Reactions: Postoperative Nausea & Vomiting (PONV) Past Psychological History: No Psychological Hx Reported Smoking Status: Current every day smoker Past Alcohol Use History: None Reported Additional Past Alcohol Use History / Comment(s): Started smoking 1990, PPD: 06/29 Past Drug Use History: Marijuana Additional Drug Use History / Comment(s): daily use - Past Family History Sister(s) Additional Family Medical History / Comment(s): bipolar Mother Additional Family Medical History / Comment(s): with blood clot to heart due to control Father Family Medical History: Cancer, Coronary Artery Disease (CAD) Additional Family Medical History / Comment(s): Skin cancer; open heart surg x2 Medications and Allergies Home Medications Medication Instructions Recorded Confirmed Type Omeprazole [PriLOSEC] 20 mg PO AC-BRKFST 09/23/20 09/25/21 History Acetaminophen Tab [Tylenol] 650 mg PO Q6H #30 tab 10/01/21 Rx Docusate [Colace] 100 mg PO BID #20 capsule 10/01/21 Rx Ibuprofen [Motrin] 600 mg PO Q6HR PRN #40 tab 10/01/21 Rx oxyCODONE HCL [OxyIR] 5 mg PO Q6H PRN 3 Days #10 tab 10/01/21 Rx Allergies Allergy/AdvReac Type Severity Reaction Status Date / Time No Known Allergies Allergy Verified 09/25/21 15:23 Physical Exam Vitals: Vital Signs Temp Pulse Resp BP Pulse Ox 10/01/21 09:41 18 10/01/21 07:15 97.8 F 88 113/54 92 L 10/01/21 02:00 97.8 F 77 17 128/77 99 09/30/21 20:00 97.7 F 87 17 134/72 97 09/30/21 14:00 97.9 F 90 18 117/83 96 09/30/21 13:30 87 16 127/66 95 09/30/21 13:00 77 16 127/72 95 Intake and Output 09/30/21 10/01/21 10/01/21 22:59 06:59 14:59 Intake Total 1080 Output Total 10 Balance 1070 Intake: Oral 1080 Output: Drainage 10 Right Abdomen 10 Other: # Voids 1 2 Weight 121.2 kg - Exam GENERAL: Well-appearing, well-nourished and in no acute distress. NECK: Normal range of motion, supple without lymphadenopathy or JVD, no thyromegaly LUNGS: Breath sounds clear to auscultation bilaterally and equal. No wheezes rales or rhonchi. HEART: Regular rate and rhythm without murmurs, rubs or gallops.S1S2 Normal ABDOMEN: Status post surgery,Soft, hypoactive bowel sounds. Dressing is clean dry and intact. Further exam was deferred, abdominal binder in place with drain. EXTREMITIES: Normal range of motion, no pitting or edema. No clubbing or cyanosis. NEUROLOGICAL: Cranial nerves II through XII grossly intact. Normal speech, normal gait. PSYCH: Normal mood, normal affect. SKIN: Warm, Dry, normal turgor, no rashes or lesions noted. Thrombosis Risk Factor Assmnt - Choose All That Apply Each Factor Represents 1 point: Age 41-60 years, Obesity (BMI >25) Each Risk Factor Represents 2 Points: Laparoscopic surgery, Major surgery Thrombosis Risk Factor Assessment Total Risk Factor Score: 6 Thrombosis Risk Factor Assessment Level: High Risk Assessment and Plan Assessment: Incisional hernia, incarcerated, status post incarcerated incisional hernia open repair with partial omentectomy PONV Gastroesophageal reflux disease History of diverticulosis, diverticulitis Ongoing nicotine dependence, marijuana use Morbid obesity, BMI 43.1 Plan: Continue on current medication regime, monitoring and symptomatic treatment. PPI added for GI prophylaxis. Aggressive pulmonary toileting with incentive spirometer ordered. Pain management as per primary. Increase ambulation as tolerated. Diet recently ordered. Patient medically cleared for discharge later today if patient tolerates diet. Follow up with PCP in one week. Thank you for the consult. The impression and plan of care has been dictated as directed. : I performed a history and examination of this patient, discussed the same with the dictator. I agree with the dictator's note ,documented as a scribe. Any additional findings or plans will be noted.
[2021-10-01] MEDS: PANTOPRAZOLE 40 MG/10 ML VIAL IVP SCH (13:39)
--- NOTE | 2021-10-01 17:04 | P.PN ---
Progress Note - Text Progress Note Date: 10/01/21 Patient is status post repair of incisional hernia. She still has complaints of significant incisional pain. She's requiring narcotics for pain control. She's had limited oral intake. On exam vital signs are stable. Abdomen soft incision is clean and intact. Status post repair of incisional hernia. Patient is not able to be discharged home today due to her perioperative pain and poor diet. Patient will be given supportive care. We made we'll discharge home tomorrow.
[2021-10-02] MEDS: KETOROLAC 15 MG/ML 1 ML VIAL IVP SCH ×2 (02:08→05:16)
[2021-10-02] MEDS: traMADol 50 MG TAB PO PRN (05:16)
[2021-10-02] MEDS: ONDANSETRON 4 MG/2 ML VIAL IVP PRN (05:50)
[2021-10-02] MEDS: LACTATED RINGERS 1,000 ML IV SCH (07:46)
[2021-10-02] MEDS: DOCUSATE 100 MG CAP PO SCH (10:24)
[2021-10-02] MEDS: PANTOPRAZOLE 40 MG/10 ML VIAL IVP SCH (10:24)
[2021-10-02] MEDS: HYDROmorphone 1 MG/ML 1 ML SYRINGE IVP PRN (10:25)
[2021-10-02] MEDS: ENOXAPARIN 40 MG/0.4 ML SYRINGE SQ SCH (10:25)
[2021-10-02] MEDS ORDERED: HYDROcodone/APAP 5-325MG 1 EACH TAB PO PRN (12:58)
--- NOTE | 2021-10-02 14:00 | P.PN ---
Subjective Progress Note Date: 10/02/21 This is a 50-year-old female admitted with incarcerated incisional hernia, status post open repair with partial omentectomy . Tolerated procedure well. Reports nausea and vomiting last night, has a history of postop nausea & vomiting. This morning complains of mild nausea, no emesis, diet recently order ed. Pain controlled, passing flatus. Denies chest pain, palpitations or shortness of breath. Denies lightheadedness, dizziness or focal deficits. 10/02/2021 passing flatus, tolerating regular diet, denies nausea or vomiting. Positive pain. Vital signs stable. Denies chest pain, palpitations or shortness of breath. Denies lightheadedness dizziness or focal deficits. Afebrile. Maintaining O2 sats in the low 90s on room air. Objective - Vital Signs Vital signs: Vital Signs Temp 98.0 F 10/02/21 01:20 Pulse 69 10/02/21 01:20 Resp 16 10/02/21 01:20 BP 137/67 10/02/21 01:20 Pulse Ox 92 L 10/02/21 01:20 Intake & Output 10/01/21 10/02/21 10/02/21 18:59 06:59 18:59 Intake Total 200 Output Total 40 60 Balance -40 140 Intake: Intake, IV Titration 200 Amount Lactated Ringers 1,000 ml 200 @ 20 mls/hr IV .Q24H [facility] Rx#:[id number] Output: Drainage 40 60 Right Abdomen 40 60 Other: Voiding Method Toilet # Voids 2 1 1 - Exam - Exam GENERAL: Well-appearing, well-nourished and in no acute distress. NECK: Normal range of motion, supple without lymphadenopathy or JVD, no thyromegaly LUNGS: Breath sounds clear to auscultation bilaterally and equal. No wheezes rales or rhonchi. HEART: Regular rate and rhythm without murmurs, rubs or gallops.S1S2 Normal ABDOMEN: Status post surgery,Soft, hypoactive bowel sounds. Dressing is clean dry and intact. Further exam was deferred, abdominal binder in place with drain. EXTREMITIES: Normal range of motion, no pitting or edema. No clubbing or cyanosis. NEUROLOGICAL: Cranial nerves II through XII grossly intact. Normal speech, normal gait. PSYCH: Normal mood, normal affect. SKIN: Warm, Dry, normal turgor, no rashes or lesions noted. Assessment and Plan Assessment: Incisional hernia, incarcerated, status post incarcerated incisional hernia open repair with partial omentectomy PONV Atelectasis, postop Gastroesophageal reflux disease History of diverticulosis, diverticulitis Ongoing nicotine dependence, marijuana use Morbid obesity, BMI 43.1 Plan: Continue on current medication regime, monitoring and symptomatic treatment. Pain management as per primary.Aggressive pulmonary toileting with incentive spirometer ordered. Increase ambulation as tolerated. Follow up with PCP in one week. The impression and plan of care has been dictated as directed. : I performed a history and examination of this patient, discussed the same with the dictator. I agree with the dictator's note ,documented as a scribe. Any additional findings or plans will be noted.
[2021-10-02 14:28] VITALS: BP 134/80; PULSE 86; RESP 18; TEMP 97.8
--- NOTE | 2021-10-02 15:32 | P.DS ---
Providers Date of admission: 09/30/21 23:20 Expected date of discharge: 10/02/21 Attending physician: Geremias Webb Consults: 09/30/21 10:41 Consult Physician Routine Consulting Provider: Joaquín Nieves Jr Consult Reason/Comments: Medical management Do you want consulting provider notified?: Yes Primary care physician: Joaquín Nieves [facility] Course: Discharge diagnosis 1. Incarcerated incisional hernia and adhesions status post diagnostic laparoscopy, open repair of incisional hernia with Prolene mesh and partial omentectomy Hospital course This a 42-year-old female has developed an incisional hernia. Patient is morbidly obese. Her BMI is 43. She has developed a incisional hernia superior portion of her midline scar. She is status post diagnostic laparoscopy, open repair of incisional hernia with Prolene mesh and partial omentectomy. Her pain is controlled. She is up and ambulating. She is tolerating diet. She is afebrile. Incision site clean dry and intact. She is stable for discharge. As per chart for any further details. Patient seen and examined with Dr. webb Physician Drilling Fluids Specialist note has been reviewed by physician. Signing provider agrees with the documented findings, assessment, and plan of care. Patient Condition at Discharge: Stable Plan - Discharge Summary Discharge Rx Participant: Yes New Discharge Prescriptions: New Docusate [Colace] 100 mg PO BID #20 capsule Ibuprofen [Motrin] 600 mg PO Q6HR PRN #40 tab PRN Reason: Pain Acetaminophen Tab [Tylenol] 650 mg PO Q6H #30 tab oxyCODONE HCL [OxyIR] 5 mg PO Q6H PRN 3 Days #10 tab PRN Reason: Pain Continue Omeprazole [PriLOSEC] 20 mg PO AC-BRKFST Discharge Medication List Omeprazole [PriLOSEC] 20 mg PO AC-BRKFST 09/23/20 [History] Acetaminophen Tab [Tylenol] 650 mg PO Q6H #30 tab 10/01/21 [Rx] Docusate [Colace] 100 mg PO BID #20 capsule 10/01/21 [Rx] Ibuprofen [Motrin] 600 mg PO Q6HR PRN #40 tab 10/01/21 [Rx] oxyCODONE HCL [OxyIR] 5 mg PO Q6H PRN 3 Days #10 tab 10/01/21 [Rx] Follow up Appointment(s)/Referral(s): Geremias Webb MD [STAFF PHYSICIAN] - 10/07/21 3:10 pm Patient Instructions/Handouts: *Surgery [facility] - Scopalamine Patch Instructions, Brian-Guillermo Drain Care (DC) Activity/Diet/Wound Care/Special Instructions: No driving while taking OxyIR No lifting over 10 pounds You may shower. No soaking or tub baths for 2 weeks Very light activity until you are reevaluated at your follow up appointment with your surgeon Keep a log of CHUCK drain output and bring with you to your follow-up appointment Milk/strip drains 2-3 times a day Discharge Disposition: HOME WITH HOME HEALTH SERVICES
== END 2021-10-02 15:39 | disposition home health service (06) ==
LOC: OR 07:50 → 4SSUR 10:41 → OR 23:20
PROVIDERS: ADMIT Surgery; ATTEND Surgery
DX: K43.0 Incisional hernia with obstruction, without gangrene (principal); R11.2 Nausea with vomiting, unspecified; J98.11 Atelectasis; K21.9 Gastro-esophageal reflux disease without esophagitis; K57.92 Diverticulitis of intestine, part unspecified, without perforation or abscess without bleeding; E66.01 Morbid (severe) obesity due to excess calories; Z68.41 Body mass index [BMI] 40.0-44.9, adult; F17.210 Nicotine dependence, cigarettes, uncomplicated; Z90.49 Acquired absence of other specified parts of digestive tract; Z79.899 Other long term (current) drug therapy; Z82.49 Family history of ischemic heart disease and other diseases of the circulatory system; Z81.8 Family history of other mental and behavioral disorders; Z80.8 Family history of malignant neoplasm of other organs or systems; Z71.9 Counseling, unspecified
CPT/HCPCS: 49561; 49568; 81025; 64488; 86900; 86901; 86850; 88302; G0378 ×3; C1781; J2250; J0330; J1100; J2710; J2765; J0690; J2405 ×2; J2001; J1650 ×2; J3010; J1170 ×4; J2795; J1885 ×3; J2704; C9113 ×2; J1644

== ENCOUNTER 2022-05-25 11:15 | Observation (INO) | payer OTHER ==
--- NOTE | 2022-05-25 11:54 | ED ---
General Adult HPI - General Chief complaint: Chest Pain Stated complaint: chest pain Time Seen by Provider: 05/25/22 11:34 Source: patient Mode of arrival: ambulatory Limitations: no limitations - History of Present Illness Initial comments: Dictation was produced using Table8 dictation software. please excuse any grammatical, word or spelling errors. Chief Complaint: 51-year-old male presents emergency Department with intermittent episodes of chest pain for the last month History of Present Illness: Patient is a 51-year-old female she denies any medical history she has not had medical care in several years. Patient was brought to the emergency department along with significant other. Patient has been reluctant to come. Over the last month or so she's been having intermittent bouts of chest pain. She says sometimes a sharp and pleuritic and sometimes it's feels like pressure. States that sometimes a raised on her left upper extremity. Not associated with nausea vomiting or exertion. Patient was really has extensive family cardiac history. The ROS documented in this emergency department record has been reviewed and confirmed by me. Those systems with pertinent positive or negative responses have been documented in the HPI. All other systems are other negative and/or noncontributory. PHYSICAL EXAM: General Impression: Alert and oriented x3, not in acute distress HEENT: Normocephalic atraumatic, extra-ocular movements intact, pupils equal and reactive to light bilaterally, mucous membranes moist. Cardiovascular: Heart regular rate and rhythm Chest: Able to complete full sentences, no retractions, no tachypnea Abdomen: abdomen soft, non-tender, non-distended, no organomegaly Musculoskeletal: Pulses present and equal in all extremities, no peripheral edema Motor: no focal deficits noted Neurological: CN II-XII grossly intact, no focal motor or sensory deficits noted Skin: Intact with no visualized rashes Psych: Normal affect and mood ED course: 51-year-old female presents emergency department with atypical chest pain with typical features. Vital signs upon arrival are within acceptable l imits. Nursing notes and chart review was performed My EKG interpretation: Ventricular rate 83, sinus rhythm,. Interval 136, QS 84, QTC 421. No IA prolongation, no QTC prolongation, no ST or T-wave changes noted. Overall, this EKG is unremarkable Laboratory evaluation obtained. CBC, metabolic panel unremarkable. Initial troponin is negative. Chest x-ray is nonacute. Given description of symptoms along with extensive family history patient be admitted observation for cardiac monitoring, surgery troponins and cardiology consultation. Patient admitted to Dr. Nieves. Critical Care: no Critical Care time: n/a - Related Data Home Medications Medication Instructions Recorded Confirmed Omeprazole [PriLOSEC] 20 mg PO DAILY 09/23/20 05/25/22 methocarbamoL [Robaxin] 500 mg PO Q8H PRN 05/25/22 05/25/22 predniSONE See Taper PO DIRECTED 05/25/22 05/25/22 Allergies Allergy/AdvReac Type Severity Reaction Status Date / Time No Known Allergies Allergy Verified 05/25/22 11:29 Review of Systems ROS Statement: Those systems with pertinent positive or pertinent negative responses have been documented in the HPI. ROS Other: All systems not noted in ROS Statement are negative. Past Medical History Past Medical History: GERD/Reflux Additional Past Medical History / Comment(s): diverticulosis,miscarriage History of Any Multi-Drug Resistant Organisms: None Reported Past Surgical History: Bowel Resection, Cholecystectomy Additional Past Surgical History / Comment(s): D & C x2, 10-25-15 BOWEL SX-LOW ANTERIOR RESECTION. Past Anesthesia/Blood Transfusion Reactions: Postoperative Nausea & Vomiting (PONV) Past Psychological History: No Psychological Hx Reported Smoking Status: Current every day smoker Past Alcohol Use History: None Reported Past Drug Use History: Marijuana - Past Family History Sister(s) Additional Family Medical History / Comment(s): bipolar Mother Additional Family Medical History / Comment(s): with blood clot to heart due to control Father Family Medical History: Cancer, Coronary Artery Disease (CAD) Additional Family Medical History / Comment(s): Skin cancer; open heart surg x2 General Exam Limitations: no limitations Course Vital Signs 05/25/22 05/25/22 11:26 13:01 Temperature 98.2 F Pulse Rate 85 82 Respiratory 18 17 Rate Blood Pressure 131/91 125/95 O2 Sat by Pulse 98 98 Oximetry Medical Decision Making - Lab Data Result diagrams: 05/25/22 12:40 05/25/22 12:40 Lab Results 05/25/22 05/25/22 05/25/22 Range/Units 12:40 12:40 12:40 WBC 11.4 H (3.8-10.6) k/uL RBC 4.75 (3.80-5.40) m/uL Hgb 12.9 (11.4-16.0) gm/dL Hct 39.1 (34.0-46.0) % MCV 82.4 (80.0-100.0) fL MCH 27.2 (25.0-35.0) pg MCHC 33.0 (31.0-37.0) g/dL RDW 14.4 (11.5-15.5) % Plt Count 258 (150-450) k/uL MPV 7.8 Neutrophils % 62 % Lymphocytes % 27 % Monocytes % 4 % Eosinophils % 5 % Basophils % 1 % Neutrophils # 7.0 (1.3-7.7) k/uL Lymphocytes # 3.1 (1.0-4.8) k/uL Monocytes # 0.4 (0-1.0) k/uL Eosinophils # 0.6 (0-0.7) k/uL Basophils # 0.1 (0-0.2) k/uL Hypochromasia Slight PT 10.2 (9.0-12.0) sec INR 0.9 (<1.2) APTT 22.0 (22.0-30.0) sec Sodium 138 (137-145) mmol/L Potassium 4.2 (3.5-5.1) mmol/L Chloride 108 H (98-107) mmol/L Carbon Dioxide 25 (22-30) mmol/L Anion Gap 5 mmol/L BUN 10 (7-17) mg/dL Creatinine 0.60 (0.52-1.04) mg/dL Est GFR (CKD-EPI)AfAm >90 (>60 ml/min/1.73 sqM) Est GFR (CKD-EPI)NonAf >90 (>60 ml/min/1.73 sqM) Glucose 137 H (74-99) mg/dL Calcium 8.3 L (8.4-10.2) mg/dL Magnesium 1.6 (1.6-2.3) mg/dL Total Bilirubin 0.6 (0.2-1.3) mg/dL AST 50 H (14-36) U/L ALT 29 (4-34) U/L Alkaline Phosphatase 73 (38-126) U/L Troponin I (0.000-0.034) ng/mL Total Protein 6.0 L (6.3-8.2) g/dL Albumin 3.6 (3.5-5.0) g/dL 05/25/22 Range/Units 12:40 WBC (3.8-10.6) k/uL RBC (3.80-5.40) m/uL Hgb (11.4-16.0) gm/dL Hct (34.0-46.0) % MCV (80.0-100.0) fL MCH (25.0-35.0) pg MCHC (31.0-37.0) g/dL RDW (11.5-15.5) % Plt Count (150-450) k/uL MPV Neutrophils % % Lymphocytes % % Monocytes % % Eosinophils % % Basophils % % Neutrophils # (1.3-7.7) k/uL Lymphocytes # (1.0-4.8) k/uL Monocytes # (0-1.0) k/uL Eosinophils # (0-0.7) k/uL Basophils # (0-0.2) k/uL Hypochromasia PT (9.0-12.0) sec INR (<1.2) APTT (22.0-30.0) sec Sodium (137-145) mmol/L Potassium (3.5-5.1) mmol/L Chloride (98-107) mmol/L Carbon Dioxide (22-30) mmol/L Anion Gap mmol/L BUN (7-17) mg/dL Creatinine (0.52-1.04) mg/dL Est GFR (CKD-EPI)AfAm (>60 ml/min/1.73 sqM) Est GFR (CKD-EPI)NonAf (>60 ml/min/1.73 sqM) Glucose (74-99) mg/dL Calcium (8.4-10.2) mg/dL Magnesium (1.6-2.3) mg/dL Total Bilirubin (0.2-1.3) mg/dL AST (14-36) U/L ALT (4-34) U/L Alkaline Phosphatase (38-126) U/L Troponin I <0.012 (0.000-0.034) ng/mL Total Protein (6.3-8.2) g/dL Albumin (3.5-5.0) g/dL Disposition Clinical Impression: Chest pain Disposition: ADMITTED IP TO THIS HOSP Condition: Fair Referrals: Joaquín Nieves Jr, [Primary Care Provider] - 1-2 days Decision Time: 14:31
--- NOTE | 2022-05-25 12:30 | XR ---
EXAMINATION TYPE: XR chest 2V DATE OF EXAM: 05/25/2022 COMPARISON: None INDICATION: Chest pain TECHNIQUE: Frontal and lateral views of the chest are obtained. FINDINGS: The heart size is normal. The pulmonary vasculature is normal. The lungs are clear. IMPRESSION: 1. No acute pulmonary process.
[2022-05-25 12:50] LABS: Basophils # (A) 0.1 k/uL (0-0.2); Basophils % (A) 1 %; Eosinophils # (A) 0.6 k/uL (0-0.7); Eosinophils % (A) 5 %; HCT 39.1 % (34.0-46.0); HGB 12.9 gm/dL (11.4-16.0); Hypochromasia Slight; Lymphocytes # (A) 3.1 k/uL (1.0-4.8); Lymphocytes % (A) 27 %; MCH 27.2 pg (25.0-35.0); MCV 82.4 fL (80.0-100.0); Mean Platelet Volume 7.8; Monocytes # (A) 0.4 k/uL (0-1.0); Monocytes % (A) 4 %; Neutrophils % (A) 62 %; Platelet Count 258 k/uL (150-450); RBC 4.75 m/uL (3.80-5.40); RDW 14.4 % (11.5-15.5); WBC 11.4 k/uL (3.8-10.6)
[2022-05-25 13:00] LABS: INR 0.9 (<1.2); Prothrombin Time 10.2 sec (9.0-12.0)
[2022-05-25 13:02] LABS: ALT 29 U/L (4-34); AST 50 U/L (14-36); African American GFR (CKD) >90 (>60 ml/min/1.73 sqM); Albumin 3.6 g/dL (3.5-5.0); Alkaline Phosphatase 73 U/L (38-126); Anion Gap 5 mmol/L; Blood Urea Nitrogen 10 mg/dL (7-17); Calcium 8.3 mg/dL (8.4-10.2); Carbon Dioxide 25 mmol/L (22-30); Chloride 108 mmol/L (98-107); Glucose 137 mg/dL (74-99); Magnesium 1.6 mg/dL (1.6-2.3); Non-African American GFR(CKD) >90 (>60 ml/min/1.73 sqM); Potassium 4.2 mmol/L (3.5-5.1); Sodium 138 mmol/L (137-145); Total Bilirubin 0.6 mg/dL (0.2-1.3)
[2022-05-25] MEDS ORDERED: ASPIRIN 81 MG PO STA (14:18)
[2022-05-25] MEDS ORDERED: NITROGLYCERIN SL TABS 0.4 MG TAB SUBLINGUAL PRN (14:29)
[2022-05-26 08:02] VITALS: RESP 16; TEMP 98.1
[2022-05-26] MEDS ORDERED: ACETAMINOPHEN TAB 325 MG TAB PO PRN (08:57)
[2022-05-26] MEDS ORDERED: ASPIRIN 325 MG TAB PO SCH (09:00)
[2022-05-26 09:17] LABS: Chol/HDL Ratio 2.57 Ratio; LDL Cholesterol,Calculated 36.3 mg/dL (0.0-131.0)
[2022-05-26] MEDS ORDERED: SODIUM CHLORIDE 0.9% 500 ML 250 ML IV ONE (09:29)
--- NOTE | 2022-05-26 09:31 | P.CRDCN ---
History of Present Illness History of present illness: HISTORY OF PRESENTING ILLNESS This is a pleasant 51-year-old female past medical history significant for incarcerated incisional hernia s/p repair 09/2021, GERD, bowel resection, cholecystectomy, chronic tobacco use. 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 We have been asked to see in consultation for chest pain. Patient presents to the emergency department with complaints of intermittent chest discomfort. She has been having left sided chest discomfort, describes it as a pressure and radiating down her left arm. It occurs with and without activity. Non-exertional per patient. She has been noticing it becoming more frequent and intense. She has associated shortness of breath and lightheadedness. Denies any nausea, vomiting, diaphoresis, syncope. She also endorses right rib pain but with movement and bending over. She denies any history of CAD, CT, Stroke, Diabetes, hypertension, dyslipidemia. Family history includes father with CAD and stenting/CABG patient is unaware of actual surgical procedure, she also states that her sister and father have heart problems but unsure of the diagnosis. She is a current every day cigarette smoker, smokes 1/2 PPD. DIAGNOSTICS * EKG reveals sinus rhythm, heart rate 83, T wave inversion in lead III, low voltage in precordial leads. Repeat EKG was similar findings, no acute ischemia noted * Telemetry tracings indicate sinus mechanism, heart rate 90s/low 100s * Chest xray no acute cardiopulmonary process * Laboratory reviewed, troponin negative 3, sodium 138, potassium 4.2, BUN 10, serum crit 0.6, magnesium 1.6, WBC 11.4, hemoglobin 12.9, platelets 258. * Current home medications include prednisone, Robaxin, Prilosec REVIEW OF SYSTEMS At the time of my exam: CONSTITUTIONAL: Denies fever or chills. CARDIOVASCULAR: +chest pain, Denies shortness of breath, orthopnea, PND or palpitations. RESPIRATORY: Denies cough. GASTROINTESTINAL: Denies abdominal pain, diarrhea, constipation, nausea or vomiting. MUSCULOSKELETAL: Denies myalgias. NEUROLOGIC: Denies numbness, tingling, headache or weakness. ENDOCRINE: Denies fatigue, weight change, polydipsia or polyurina. GENITOURINARY: Denies burning, hematuria or urgency with micturation. HEMATOLOGIC: Denies history of anemia or bleeding. PHYSICAL EXAMINATION Blood pressure 116/66, heart rate 101, afebrile, saturations 96% on room air CONSTITUTIONAL: No apparent distress. HEENT: Head is normocephalic. Pupils are equal, round. Sclerae anicteric. Mucous membranes of the mouth are moist. No JVD. No carotid bruit. CHEST EXAMINATION: Lungs are clear to auscultation. No chest wall tenderness is noted on palpation or with deep breathing. HEART EXAMINATION: Regular rate and rhythm. S1, S2 heard. No murmurs, gallops or rub. ABDOMEN: Soft, nontender. Positive bowel sounds. EXTREMITIES: 2+ peripheral pulses, no lower extremity edema and no calf tenderness. SKIN: Warm, dry NEUROLOGIC EXAMINATION: Patient is awake, alert and oriented x3. ASSESSMENT Chest pain, acute coronary syndrome has been ruled out History of incarcerated incisional hernia s/p repair 09/2021 History of GERD Chronic tobacco use Family history of coronary artery disease PLAN An acute coronary event has been ruled out with no EKG evidence of ischemia and negative cardiac enzymes. Obtain 2D echocardiogram and doppler study to assess cardiac structure and function. Perform Stress Echo test to assess for stress induced cardiac ischemia. If abnormal will consider coronary angiography. Smoking cessation discussed and highly recommended. Lipid Panel If stress test with no evidence of stress induced ischemia, ok to discharge from a cardiology perspective. Thank you kindly for this consultation. Nurse practitioner note has been reviewed by physician. Signing provider agrees with the documented findings, assessment, and plan of care. Past Medical History Past Medical History: GERD/Reflux Additional Past Medical History / Comment(s): diverticulosis,miscarriage History of Any Multi-Drug Resistant Organisms: None Reported Past Surgical History: Bowel Resection, Cholecystectomy, Hernia Repair Additional Past Surgical History / Comment(s): D & C x2, 10-25-15 BOWEL SX-LOW ANTERIOR RESECTION. Past Anesthesia/Blood Transfusion Reactions: Postoperative Nausea & Vomiting (PONV) Past Psychological History: No Psychological Hx Reported Smoking Status: Current every day smoker Past Alcohol Use History: None Reported Additional Past Alcohol Use History / Comment(s): started smoking 1990. PPD: 1/2 Past Drug Use History: Marijuana Additional Drug Use History / Comment(s): daily use - Past Family History Sister(s) Additional Family Medical History / Comment(s): bipolar Mother Additional Family Medical History / Comment(s): with blood clot to heart due to control Father Family Medical History: Cancer, Coronary Artery Disease (CAD) Additional Family Medical History / Comment(s): Skin cancer; open heart surg x2 Medications and Allergies Home Medications Medication Instructions Recorded Confirmed Type Omeprazole [PriLOSEC] 20 mg PO DAILY 09/23/20 05/25/22 History methocarbamoL [Robaxin] 500 mg PO Q8H PRN 05/25/22 05/25/22 History predniSONE See Taper PO DIRECTED 05/25/22 05/25/22 History Allergies Allergy/AdvReac Type Severity Reaction Status Date / Time No Known Allergies Allergy Verified 05/25/22 11:29 Physical Exam Vitals: Vital Signs Temp Pulse Pulse Pulse Resp BP BP 05/26/22 01:37 98.2 F 101 H 20 116/66 05/25/22 18:55 98.0 F 91 19 110/66 05/25/22 15:41 98.0 F 84 14 141/93 05/25/22 15:01 98.0 F 86 17 137/91 05/25/22 14:03 78 18 129/91 05/25/22 13:01 82 17 125/95 05/25/22 12:30 80 05/25/22 11:26 98.2 F 85 18 131/91 Pulse Ox 05/26/22 01:37 96 05/25/22 18:55 98 05/25/22 15:41 98 05/25/22 15:01 98 05/25/22 14:03 98 05/25/22 13:01 98 05/25/22 12:30 05/25/22 11:26 98 Intake and Output 05/25/22 05/26/22 05/26/22 22:59 06:59 14:59 Intake Total 810 Balance 810 Intake: Oral 810 Other: # Voids 1 1 Weight 122.47 kg Results 05/25/22 12:40 05/25/22 12:40 Cardiac Enzymes 05/25/22 05/25/22 05/25/22 Range/Units 12:40 12:40 15:59 AST 50 H (14-36) U/L Troponin I <0.012 <0.012 (0.000-0.034) ng/mL 05/25/22 Range/Units 19:24 AST (14-36) U/L Troponin I <0.012 (0.000-0.034) ng/mL Coagulation 05/25/22 Range/Units 12:40 PT 10.2 (9.0-12.0) sec APTT 22.0 (22.0-30.0) sec CBC 05/25/22 Range/Units 12:40 WBC 11.4 H (3.8-10.6) k/uL RBC 4.75 (3.80-5.40) m/uL Hgb 12.9 (11.4-16.0) gm/dL Hct 39.1 (34.0-46.0) % Plt Count 258 (150-450) k/uL Comprehensive Metabolic Panel 05/25/22 Range/Units 12:40 Sodium 138 (137-145) mmol/L Potassium 4.2 (3.5-5.1) mmol/L Chloride 108 H (98-107) mmol/L Carbon Dioxide 25 (22-30) mmol/L BUN 10 (7-17) mg/dL Creatinine 0.60 (0.52-1.04) mg/dL Glucose 137 H (74-99) mg/dL Calcium 8.3 L (8.4-10.2) mg/dL AST 50 H (14-36) U/L ALT 29 (4-34) U/L Alkaline Phosphatase 73 (38-126) U/L Total Protein 6.0 L (6.3-8.2) g/dL Albumin 3.6 (3.5-5.0) g/dL Current Medications Generic Name Dose Route Start Last Admin Trade Name Freq PRN Reason Stop Dose Admin Aspirin 325 mg 05/26/22 09:00 Aspirin 325 Mg Tab PO DAILY JACQUELYN Nitroglycerin 0.4 mg 05/25/22 14:29 Nitroglycerin Sl Tabs 0.4 Mg Tab SUBLINGUAL Q5M PRN Chest Pain Intake and Output 05/25/22 05/26/22 05/26/22 22:59 06:59 14:59 Intake Total 810 Balance 810 Intake: Oral 810 Other: # Voids 1 1 Weight 122.47 kg 05/25/22 12:40 05/25/22 12:40
--- NOTE | 2022-05-26 12:09 | CA ---
Stress Echo Report Erica So Age: 51 Gender: F : 1970 Exam Date: 05/26/2022 10:38 Exam Location: [facility] Ht (in): 65 Wt (lb): 270 Ordering Physician: Jaimie Car Referring Physician: SEKOU,, Engineering And Operations Director: Griselda Russell RDCS Technologist Procedure CPT: Indication: Chest Pain ICD-9 Codes: Rhythm: Patient History: Cardiac Medications: Medications in past 24 hours: Contrast: N/A Stress Results Protocol: Wade Total dose(mL): Exercise Duration (min:sec): [id number] 87!! Max ST Depression (mm): Angina Score: Diaz Score: METS: 5.8 Resting HR: 105 Resting BP: 140 / 78 Peak HR: 151 Peak BP: 147 / 74 Max Predicted HR: 171 88 % Max Predicted HR Target HR: 145 Double Product: [id number] Stress Summary: BP Response: Reason for Termination: PT SOB Cardiac Symptoms: NO SYMPTOMS ECG Analysis Resting ECG: Stress ECG: Arrhythmia: Echo Analysis Resting Echo: Peak Echo Analysis: MEASUREMENTS (Male/Female) Normal Values CONCLUSIONS Baseline EKG revealed normal sinus rhythm without significant ST-T changes. Patient walked on a standard Wade protocol for a total duration of 4 minutes 10 seconds and achieved a maximum heart rate of 145 bpm. Limited x-rays capacity no evidence suggest ischemia on the EKG. No significant arrhythmia. There was a lot of artifact Baseline echo images revealed normal wall motion wall thickening of all segments. At peak exercise there was good augmentation of left ventricle wall motion wall thickening of all segments suggesting that there is no evidence of any stress-induced ischemia on this study #1 limited exercise capacity #2 normal stress test by EKG criteria #3 normal stress echocardiogram without evidence of ischemia Dr. Spencer Harrison MD (Electronically Signed) Final Date: 26 May 2022 12:08
--- NOTE | 2022-05-26 12:10 | CA ---
Transthoracic Echo Report Name: Erica So Age: 51 Gender: F : 1970 Exam Date: 05/26/2022 11:03 Exam Location: [facility] Ht (in): 65 Wt (lb): 240 Ordering Physician: Jaimie Car Attending/Referring Phys: Cna Instructor Griselda Russell RDCS Procedure CPT: Indications: chest pain, shortness of breath Cardiac Hx: Technical Quality: Fair Contrast 1: Total Dose (mL): Contrast 2: Total Dose (mL): MEASUREMENTS (Male / Female) Normal Values 2D ECHO LV Diastolic Diameter PLAX 4.8 cm 4.2 - 5.9 / 3.9 - 5.3 cm LV Systolic Diameter PLAX 2.7 cm IVS Diastolic Thickness 0.9 cm 0.6 - 1.0 / 0.6 - 0.9 cm LVPW Diastolic Thickness 1.3 cm 0.6 - 1.0 / 0.6 - 0.9 cm LV Relative Wall Thickness 0.5 M-MODE Aortic Root Diameter MM 3.6 cm LA Systolic Diameter MM 3.6 cm LA Ao Ratio MM 1.0 MV E Point Septal Separation 0.2 cm AV Cusp Separation MM 1.5 cm DOPPLER MV Area PHT 3.5 cm??? Mitral E Point Velocity 83.7 cm/s Mitral A Point Velocity 95.6 cm/s Mitral E to A Ratio 0.9 MV Deceleration Time 218.2 ms TR Peak Velocity 234.0 cm/s TR Peak Gradient 21.9 mmHg Right Ventricular Systolic Press 26.9 mmHg FINDINGS Left Ventricle Mildly increased posterior wall thickness. Left ventricular ejection fraction is estimated at 60%. Right Ventricle Normal right ventricular size and function. Right Atrium Normal right atrial size. Left Atrium Normal left atrial size. Mitral Valve Structurally normal mitral valve. Mild mitral regurgitation. Aortic Valve Trileaflet aortic valve. Tricuspid Valve Structurally normal tricuspid valve. Mild tricuspid regurgitation. Pulmonic Valve Structurally normal pulmonic valve. Pericardium Echo free space anterior to the right ventricle likely represents a fat pad. Aorta Normal size aortic root and proximal ascending aorta. CONCLUSIONS Normal left ventricle size and systolic function with [id number] concentric LVH. Mild mitral and tricuspid insufficiency. No pericardial effusion. Previewed by: Dr. Spencer Harrison MD (Electronically Signed) Final Date: 26 May 2022 12:10
[2022-05-26 15:51] VITALS: BP 127/83; PULSE 92
--- NOTE | 2022-05-26 19:20 | P.HPIM ---
History of Present Illness H&P Date: 05/26/22 Chief Complaint: Chest pain History and Physical and Discharge Summary This a 51-year-old female with past medical history of gastroesophageal reflux disease, diverticulosis, multiple abdominal surgeries-post recent incarcerated incisional hernia repair 10/17 ,ongoing nicotine dependence, marijuana use, family history of CAD and multiple other medical issues presented to the ER with complaints of worsening nonexertional left-sided intermittent chest pressure radiating down left arm, accompanied by shortness of breath, lightheadedness. Denies any syncope. Denies any nausea vomiting or diarrhea. Denies any abdominal pain. EKG reported sinus rhythm. Troponins negative 3. Chest x-ray reported no acute cardiopulmonary process. Hematology, coagulation and chemistry panels unremarkable. Lipid panel pending. Evaluated by cardiology and patient is scheduled for echo, stress test. Review of Systems ROS Statement: Those systems with pertinent positive or pertinent negative responses have been documented in the HPI. ROS Other: All systems not noted in ROS Statement are negative. Past Medical History Past Medical History: GERD/Reflux Additional Past Medical History / Comment(s): diverticulosis,miscarriage History of Any Multi-Drug Resistant Organisms: None Reported Past Surgical History: Bowel Resection, Cholecystectomy, Hernia Repair Additional Past Surgical History / Comment(s): D & C x2, 10-25-15 BOWEL SX-LOW ANTERIOR RESECTION. Past Anesthesia/Blood Transfusion Reactions: Postoperative Nausea & Vomiting (PONV) Past Psychological History: No Psychological Hx Reported Smoking Status: Current every day smoker Past Alcohol Use History: None Reported Additional Past Alcohol Use History / Comment(s): started smoking 1990. PPD: 06/29 Past Drug Use History: Marijuana Additional Drug Use History / Comment(s): daily use - Past Family History Sister(s) Additional Family Medical History / Comment(s): bipolar Mother Additional Family Medical History / Comment(s): with blood clot to heart due to control Father Family Medical History: Cancer, Coronary Artery Disease (CAD) Additional Family Medical History / Comment(s): Skin cancer; open heart surg x2 Medications and Allergies Home Medications Medication Instructions Recorded Confirmed Type Omeprazole [PriLOSEC] 20 mg PO DAILY 09/23/20 05/25/22 History methocarbamoL [Robaxin] 500 mg PO Q8H PRN 05/25/22 05/25/22 History predniSONE See Taper PO DIRECTED 05/25/22 05/25/22 History Allergies Allergy/AdvReac Type Severity Reaction Status Date / Time No Known Allergies Allergy Verified 05/25/22 11:29 Physical Exam Vitals: Vital Signs Temp Pulse Pulse Pulse Resp BP BP 05/26/22 07:25 98.1 F 84 16 128/77 05/26/22 01:37 98.2 F 101 H 20 05/25/22 18:55 98.0 F 91 19 05/25/22 15:41 98.0 F 84 14 05/25/22 15:01 98.0 F 86 17 137/91 05/25/22 14:03 78 18 129/91 05/25/22 13:01 82 17 125/95 05/25/22 12:30 80 05/25/22 11:26 98.2 F 85 18 131/91 BP Pulse Ox 05/26/22 07:25 94 L 05/26/22 01:37 116/66 96 05/25/22 18:55 110/66 98 05/25/22 15:41 141/93 98 05/25/22 15:01 98 05/25/22 14:03 98 05/25/22 13:01 98 05/25/22 12:30 05/25/22 11:26 98 Intake and Output 05/25/22 05/26/22 05/26/22 22:59 06:59 14:59 Intake Total 810 Balance 810 Intake: Oral 810 Other: # Voids 1 1 Weight 122.47 kg - Exam GENERAL: Well-appearing, well-nourished and in no acute distress. NECK: Normal range of motion, supple without lymphadenopathy or JVD, no thyromegaly LUNGS: Breath sounds clear to auscultation bilaterally and equal. No wheezes rales or rhonchi. HEART: Regular rate and rhythm without murmurs, rubs or gallops.S1S2 Normal ABDOMEN: Soft, nontender, nondistended, no masses appreciated. No guarding, no rigidity. Positive bowel sounds. EXTREMITIES:no pitting or edema. No clubbing or cyanosis. NEUROLOGICAL: Cranial nerves II through XII grossly intact. No focal deficits. PSYCH: Normal mood, normal affect. SKIN: Warm, Dry, no rashes noted. Results CBC & Chem 7: 05/25/22 12:40 05/25/22 12:40 Labs: Abnormal Lab Results - Last 24 Hours (Table) 05/25/22 05/25/22 05/26/22 Range/Units 12:40 12:40 05:37 WBC 11.4 H (3.8-10.6) k/uL Chloride 108 H (98-107) mmol/L Glucose 137 H (74-99) mg/dL Calcium 8.3 L (8.4-10.2) mg/dL AST 50 H (14-36) U/L Total Protein 6.0 L (6.3-8.2) g/dL Triglycerides 216.00 H (0.00-149.00) mg/dL VLDL Cholesterol, Calc 43.20 H (5.00-40.00) mg/dL Thrombosis Risk Factor Assmnt - Choose All That Apply Any of the Below Risk Factors Present?: Yes Each Factor Represents 1 point: Age 41-60 years, Obesity (BMI >25) Other Risk Factors: No Other congenital or acquired thrombophilia - If yes, enter type in comment: No Thrombosis Risk Factor Assessment Total Risk Factor Score: 2 Thrombosis Risk Factor Assessment Level: Low Risk Assessment and Plan Assessment: Chest pain, in a patient with family history of CAD, troponins negative, cardiology following Gastroesophageal reflux disease History of diverticulosis Ongoing nicotine dependence, marijuana use Morbid obesity, BMI 43.6 Plan: Continue on current medication regime ,monitoring and symptomatic treatment.NPO, stress echo,Lipid panel pending. Patient will be discharged home later today in a stable condition with guarded prognosis pending stress echo results, final DC recommendations and clearance per cardiology. Discharge Medication List Omeprazole [PriLOSEC] 20 mg PO DAILY 09/23/20 [History] methocarbamoL [Robaxin] 500 mg PO Q8H PRN 05/25/22 [History] predniSONE See Taper PO DIRECTED 05/25/22 [History] The impression and plan of care has been dictated as directed. : I performed a history and examination of this patient, discussed the same with the dictator. I agree with the dictator's note ,documented as a scribe. Any additional findings or plans will be noted.
== END 2022-05-26 17:17 | disposition home or self-care (01) ==
LOC: EC 11:15 → 6NMEDSUR 14:29
PROVIDERS: ADMIT Family Medicine; ATTEND Family Medicine
DX: R07.89 Other chest pain (principal); K21.9 Gastro-esophageal reflux disease without esophagitis; F17.210 Nicotine dependence, cigarettes, uncomplicated; K57.90 Diverticulosis of intestine, part unspecified, without perforation or abscess without bleeding; F12.90 Cannabis use, unspecified, uncomplicated; E66.01 Morbid (severe) obesity due to excess calories; I08.1 Rheumatic disorders of both mitral and tricuspid valves; Z79.899 Other long term (current) drug therapy; Z90.49 Acquired absence of other specified parts of digestive tract; Z82.49 Family history of ischemic heart disease and other diseases of the circulatory system; Z80.8 Family history of malignant neoplasm of other organs or systems; Z81.8 Family history of other mental and behavioral disorders; Z68.41 Body mass index [BMI] 40.0-44.9, adult
CPT/HCPCS: 36415; 93005; 93306; 93351; 80061; 80053; 83735; 84484; 85025; 85610; 85730; 71046; G0378 ×2; 96360; 99285

== ENCOUNTER → 2022-08-24 | Outpatient (CLI) | payer OTHER ==
[2022-08-24 19:34] LABS: Basophils # (A) 0.07 X 10*3/uL (0.00-0.10); Basophils % (A) 0.7 %; Eosinophils # (A) 0.61 X 10*3/uL (0.04-0.35); Eosinophils % (A) 6.2 %; HCT 41.2 % (37.2-46.3); HGB 12.4 g/dL (12.0-15.0); Immature Grans, Automated 0.4 %; Lymphocytes # (A) 2.78 X 10*3/uL (0.90-5.00); Lymphocytes % (A) 28.2 %; MCH 24.8 pg (27.0-32.0); MCHC 30.1 g/dL (32.0-37.0); MCV 82.4 fL (80.0-97.0); Mean Platelet Volume 11.4 fL (9.5-12.2); Monocytes # (A) 0.51 X 10*3/uL (0.20-1.00); Monocytes % (A) 5.2 %; NRBC Per 100 WBC 0 /100 WBCS (0.0-0.0); Neutrophils # (A) 5.85 X 10*3/uL (1.80-7.70); Neutrophils % (A) 59.3 %; Platelet Count 293 X 10*3/uL (140-440); RDW 15.3 % (11.5-14.5); WBC 9.86 X 10*3/uL (4.50-10.00)
[2022-08-24 20:04] LABS: ALT 29 U/L (8-44); AST 34 U/L (13-35); African American GFR (CKD) 117.9 (60.0-200.0); Albumin/Globulin Ratio 1.33 (1.60-3.17); Alkaline Phosphatase 97 U/L (41-126); BUN/Creat Ratio 16.57 Ratio (12.00-20.00); Blood Urea Nitrogen 11.6 mg/dL (9.0-27.0); Calcium 9.2 mg/dL (8.7-10.3); Carbon Dioxide 25.5 mmol/L (20.0-27.5); Chloride 103 mmol/L (96-109); Chol/HDL Ratio 2.47 Ratio; Glucose 189 mg/dL (70-110); LDL Cholesterol,Calculated 59.2 mg/dL (0.0-131.0); Non-African American GFR(CKD) 101.7 (60.0-200.0); Potassium 4.3 mmol/L (3.5-5.5); Sodium 139 mmol/L (135-145)
== END | disposition home or self-care (01) ==
LOC: LABWHC1 11:58
PROVIDERS: ATTEND Family Medicine
DX: R10.10 Upper abdominal pain, unspecified (principal)
CPT/HCPCS: 36415; 80053; 80061; 82306; 84439; 84443; 85025

== ENCOUNTER → 2024-01-17 | Outpatient (CLI) | payer BC ==
--- NOTE | 2024-01-20 09:22 | MM ---
Reason for Exam: Screening (asymptomatic). Last mammogram was performed 3 year(s) and 11 month(s) ago. Patient History: Menarche at age 14. First Full-Term at age 28. Other cancer. Risk Values: Mee 5 year model risk: 1.1%. NCI Lifetime model risk: 9.7%. Prior Study Comparison: 07/16/2017 Bilateral Screening Mammogram, [facility]. 09/28/2018 Bilateral Screening Mammogram, [facility]. 02/26/2020 Bilateral Screening Mammogram, [facility]. Tissue Density: The breasts are almost entirely fatty. Findings: Analyzed By CAD. There is no suspicious group of microcalcifications or new suspicious mass in either breast. Overall Assessment: Benign, BI-RAD 2 Management: Screening Mammogram of both breasts in 1 year. . Patient should continue monthly self-breast exams. A clinical breast exam by your physician is recommended on an annual basis. This exam should not preclude additional follow-up of suspicious palpable abnormalities. Note on Mee scores and lifetime risk: 1. A Mee score greater than 3% is considered moderate risk. If this is the case, consider specialist referral to assess eligibility for a risk reducing agent. 2. If overall lifetime risk for the development of breast cancer is 20% or higher, the patient may qualify for future screening with alternating mammogram and breast MRI. Electronically signed and approved by: Sonu Ceron M.D. Radiologis
== END | disposition home or self-care (01) ==
LOC: RADMAMWWP 15:53
PROVIDERS: ATTEND Family Medicine
DX: Z12.31 Encounter for screening mammogram for malignant neoplasm of breast (principal); R92.313 Mammographic fatty tissue density, bilateral breasts
CPT/HCPCS: 77063; 77067

== ENCOUNTER 2024-03-20 12:08 | Day surgery (SDC) | payer BC ==
[2024-03-20] MEDS ORDERED: LIDOCAINE 1% (10MG/ML) FOR IV START INTRADERMA PRN (12:47)
[2024-03-20 12:53] VITALS: RESP 16; TEMP 97
[2024-03-20 13:05] LABS: Glucose,Whole Blood 103 mg/dL (70-110)
[2024-03-20] MEDS: LACTATED RINGERS 1,000 ML IV SCH (13:05)
[2024-03-20] MEDS: IV FLUID CONTINUATION 1,000 ML IV ONE (13:05)
[2024-03-20] MEDS ORDERED: PROPOFOL 10 MG/ML 20 ML VIAL IV ONE (13:17)
[2024-03-20] MEDS ORDERED: ONDANSETRON 4 MG/2 ML VIAL ONE (13:17)
--- NOTE | 2024-03-20 13:19 | P.GSHP ---
History of Present Illness H&P Date: 03/20/24 Chief Complaint: Screening colonoscopy This is a 53-year-old female who presents today for screening colonoscopy. Patient denies any significant GI complaints. Past Medical History Past Medical History: Cancer, Diabetes Mellitus, GERD/Reflux Additional Past Medical History / Comment(s): diverticulitis, CTS both hands, cervical cancer yrs. ago History of Any Multi-Drug Resistant Organisms: None Reported Past Surgical History: Bowel Resection, Cholecystectomy, Hernia Repair Additional Past Surgical History / Comment(s): D & C x2, 10-25-15 BOWEL SX-LOW ANTERIOR RESECTION. Past Anesthesia/Blood Transfusion Reactions: Postoperative Nausea & Vomiting (PONV) Smoking Status: Current every day smoker - Past Family History Sister(s) Additional Family Medical History / Comment(s): bipolar Mother Additional Family Medical History / Comment(s): with blood clot to heart due to control Father Family Medical History: Cancer, Coronary Artery Disease (CAD) Additional Family Medical History / Comment(s): Skin cancer; open heart surg x2 Medications and Allergies Home Medications Medication Instructions Recorded Confirmed Type Omeprazole [PriLOSEC] 20 mg PO DAILY 09/23/20 03/20/24 History Ergocalciferol [Vitamin D2 (1250 1,250 mcg PO WEEKLY 03/16/24 03/16/24 History Mcg = [id number] Iu)] metFORMIN HCL [Glucophage] 500 mg PO AC-SUPPER 03/16/24 03/20/24 History Allergies Allergy/AdvReac Type Severity Reaction Status Date / Time No Known Allergies Allergy Verified 03/16/24 15:20 Surgical - Exam Vital Signs Temp Pulse Resp BP Pulse Ox 97 F L 88 16 122/75 97 03/20/24 12:52 03/20/24 12:52 03/20/24 12:52 03/20/24 12:52 03/20/24 12:52 - General well developed, well nourished, no distress - ENT normal pinna - Neck no masses - Respiratory normal expansion - Cardiovascular Rhythm: regular - Abdomen Abdomen: soft, non tender Assessment and Plan Assessment: Will perform screening colonoscopy
--- NOTE | 2024-03-20 13:35 | P.OP ---
Date of Procedure: 03/20/24 Preoperative Diagnosis: Screening colonoscopy Postoperative Diagnosis: Mild diverticulosis Procedure(s) Performed: Colonoscopy Anesthesia: MAC Surgeon: Geremias Montenegro Pathology: none sent Condition: stable Disposition: PACU Description of Procedure: The patient was placed on the endoscopy table lateral position. She received IV sedation. Digital rectal exam performed. This revealed external hemorrhoids. The flexible colonoscope was then placed patient anus and passed throughout the entire colon. The ileocecal valve was visualized. The cecum, ascending and transverse colon appeared normal. In the descending colon there is a few scattered diverticuli. Patient had a previous sigmoid resection. The colorectal anastomosis was visualized. The scope was then withdrawn. The Mainer of the rectum. Normal. There were internal/external hemorrhoids noted on withdrawal of the scope. Patient was noted to have some bilious vomiting at the end of the procedure. The patient was mouth was aspirated by anesthesia. There was no evidence of any aspiration p of the bilious vomit.
[2024-03-20] MEDS: ALBUTEROL NEBULIZED 2.5 MG/3 ML INHALATION STA (13:49)
[2024-03-20 14:41] VITALS: BP 103/69; PULSE 78
== END 2024-03-20 14:41 | disposition home or self-care (01) ==
LOC: ORWHC2ENDO 12:08
PROVIDERS: ATTEND Surgery
DX: Z00.00 Encounter for general adult medical examination without abnormal findings
CPT/HCPCS: 45378